=== PATIENT | female | born 1950 | race Caucasian/White ===

== ENCOUNTER 2016-12-20 06:32 | Outpatient (CLI) | payer MEDICARE, OTHER ==
[~2016-12-20] VITALS: Ht 162.6 cm; Wt 73.5 kg
[~2016-12-20 06:32] MED LIST: CALCTAB44 PO; CLOB-49 SUBD; FISH1000 PO; FLUT1SPR2; MAGN125C PO; MULT1TAB18 PO; MUPI2OI EXT; PHILCAP4 PO; PRESCAP6 PO; RETA0.5S OP; VITA100054 PO; ZYRT10TA2 PO; [UNRECOGNIZED DRUG - CODE] PO
[2016-12-20] MEDS ORDERED: PROPOFOL 200 MG/20 ML VIAL As Ordered ONE (07:06)
[2016-12-20] MEDS ORDERED: LIDOCAINE 2% INJ 100 MG/5 ML SDV (FOR ANES.) As Ordered ONE (07:11)
[2016-12-20] MEDS ORDERED: NS 1,000 ML IV SCH (07:15)
--- NOTE | 2016-12-20 07:49 | ROOR ---
Patient Name: Tiki Royal Procedure Date: 12/20/2016 7:27 AM Date of : 1950 Age: 66 Room: [facility] Gender: Female Note Status: Finalized Procedure: Colonoscopy Indications: Screening for colorectal malignant neoplasm Providers: Alfa WALKER MD Referring MD: Adolph Escobar MD Requesting Provider: Medicines: Monitored Anesthesia Care Complications: No immediate complications. Procedure: Pre-Anesthesia Assessment: - The heart rate, respiratory rate, oxygen saturations, blood pressure, adequacy of pulmonary ventilation, and response to care were monitored throughout the procedure. The Colonoscope was introduced through the anus and advanced to the cecum, identified by appendiceal orifice and ileocecal valve. The colonoscopy was performed without difficulty. The patient tolerated the procedure well. The quality of the bowel preparation was good. Findings: The perianal and digital rectal examinations were normal. Two flat polyps were found in the ascending colon. The polyps were 6 to 8 mm in size. These polyps were removed with a piecemeal technique using a cold snare. Resection and retrieval were complete. Multiple small-mouthed diverticula were found in the sigmoid colon. The exam was otherwise without abnormality on direct and retroflexion views. Impression: - Two 6 to 8 mm polyps in the ascending colon, removed piecemeal using a cold snare. Resected and retrieved. - Moderate diverticulosis in the sigmoid colon. - The examination was otherwise normal on direct and retroflexion views. Recommendation: - Repeat colonoscopy in 3 years for surveillance. Alfa Walker MD Alfa WALKER MD 12/20/2016 7:48:39 AM This report has been signed electronically. Number of Addenda: 0 Note Initiated On: 12/20/2016 7:27 AM Estimated Blood Loss: Estimated blood loss: none.
[2016-12-20 08:10] VITALS: BP 141/78
== END 2016-12-20 08:19 | disposition home or self-care (01) ==
LOC: M OPP 06:32
PROVIDERS: ATTEND Internal Medicine Gastroenterology
DX: Z12.11 Encounter for screening for malignant neoplasm of colon (principal); D12.2 Benign neoplasm of ascending colon; K57.30 Diverticulosis of large intestine without perforation or abscess without bleeding; M54.5 Low back pain; Z85.828 Personal history of other malignant neoplasm of skin; R51 Headache; E55.9 Vitamin D deficiency, unspecified; Z78.0 Asymptomatic menopausal state; Z88.8 Allergy status to other drugs, medicaments and biological substances; Z79.899 Other long term (current) drug therapy; Z80.3 Family history of malignant neoplasm of breast; Z80.8 Family history of malignant neoplasm of other organs or systems; Z80.41 Family history of malignant neoplasm of ovary

== ENCOUNTER 2016-12-28 10:44 | Day surgery (SDC) | payer MEDICARE, OTHER ==
[~2016-12-28] VITALS: Ht 162.6 cm; Wt 73.5 kg
[~2016-12-28 10:44] MED LIST changes: +ACETAMINOPHEN 325 MG TAB PO PRN; +BSS with VANC/TOB/EPI for EYE CASES IR ONE; +CYCLOPENTOLATE 2% OPHTH SOLN 2ML BTL OS ONE; +HEALON DUET (HEALON 10MG/ML 0.55ML & HEALON ENDOCOAT 30MG/ML 0.85ML) As Ordered ONE; +LIDOCAINE 1% SDV 5 ML VIAL As Ordered ONE; +LIDOCAINE 3.5 % 1ML OPHTH TOPICAL GEL OU ONE; +MOXIFLOXACIN IN BSS 0.25MG/0.25ML INTRACAMERAL INJ (OR EYE ONLY)(J2280) As Ordered ONE; +OFLOXACIN 0.3 % (OCUFLOX) OPTH SOL 5ML OS ONE; +PHENYLEPHRINE 2.5% OPHTH SOL 2ML OS ONE; +POVIDONE-IODINE 5% OPHTH PREP SOL 30ML As Ordered ONE; +PROPARACAINE 0.5% OPHTH SOL 15ML OS PRN; +TRIAMCINOLONE PRES FR 40 MG/ML 1ML(TRIESENCE)(OR EYE ONLY)(J3300 PER 1MG) As Ordered ONE; +TROPICAMIDE 1% OPHTH SOLN 2ML OS ONE
[2016-12-28] MEDS ORDERED: LIDOCAINE 1% SDV 5 ML VIAL SQ PRN (11:00)
[2016-12-28] MEDS ORDERED: LR 1,000 ML IV ONE (11:00)
[2016-12-28] MEDS ORDERED: MIDAZOLAM INJ 2 MG/2 ML VIAL (J2250) As Ordered ONE (13:31)
[2016-12-28] MEDS ORDERED: fentaNYL 100 MCG/2 ML INJECTION (J3010) As Ordered ONE (13:31)
[2016-12-28 14:30] VITALS: BP 147/70
[2016-12-28] MEDS ORDERED: KETOROLAC 0.5% OPHTH SOLN OS ONE (14:30)
[2016-12-28] MEDS ORDERED: TRIMETHOBENZAMIDE 300 MG CAP PO PRN (14:30)
[2016-12-28] MEDS ORDERED: AcetaZOLAMIDE 500 MG ER CAP PO ONE (14:30)
--- NOTE | 2016-12-30 11:38 | RO ---
DATE OF PROCEDURE: 12/28/2016 PREPROCEDURE DIAGNOSIS: Cataract of left eye. POSTPROCEDURE DIAGNOSIS: Cataract of left eye. PROCEDURE: Femtosecond laser and phacoemulsification of the intraocular lens with lens implantation left eye. Intraocular lens power used was [id number], power 12.5 diopter. SURGEON: Terese King MD CROWNING HAMMER OPERATOR: None. ANESTHESIA: Local IV standby. FINDINGS: Cataract of left eye. COMPLICATIONS: None. DESCRIPTION OF PROCEDURE: The patient was brought to the operating room and laid in supine position. A lid speculum was placed, and patient was brought under the femtosecond laser. After the satisfactory placement of the patient interface, primary incision, secondary incision, and arcuate incisions with lens fragmentation was done without any complication per plan. The patients interface was then removed and lid speculum removed. Patient was placed under the microscope. The eye was prepped and draped in a sterile fashion for ophthalmic surgery. Lid speculum was placed. The secondary incision was opened, and EndoCoat was injected into the anterior chamber. The temporal clear corneal incision was then opened and capsulorrhexis removed, followed by hydrodissection. This was followed by phacoemulsification of the lens within the capsular bag. Cortical material was then aspirated, and Healon was injected into the capsular bag. Intraocular lens was then placed. Excess Healon was aspirated. Wound was hydrated. The lid speculum was removed, and patient was returned to the recovery room in stable condition.
== END 2016-12-28 14:06 | disposition home or self-care (01) ==
LOC: M SDC 10:44
PROVIDERS: ATTEND Ophthalmology
DX: H25.9 Unspecified age-related cataract (principal); M54.5 Low back pain; Z85.828 Personal history of other malignant neoplasm of skin; Z88.8 Allergy status to other drugs, medicaments and biological substances; Z79.899 Other long term (current) drug therapy
CPT/HCPCS: 66984; J2250; J2280; J3010; J3300; V2788

== ENCOUNTER → 2016-12-30 | Outpatient (REF) | payer MEDICARE, OTHER ==
[~2016-12-30] MED LIST changes: -ACETAMINOPHEN 325 MG TAB PO PRN; -BSS with VANC/TOB/EPI for EYE CASES IR ONE; -CYCLOPENTOLATE 2% OPHTH SOLN 2ML BTL OS ONE; -HEALON DUET (HEALON 10MG/ML 0.55ML & HEALON ENDOCOAT 30MG/ML 0.85ML) As Ordered ONE; -LIDOCAINE 1% SDV 5 ML VIAL As Ordered ONE; -LIDOCAINE 3.5 % 1ML OPHTH TOPICAL GEL OU ONE; -MOXIFLOXACIN IN BSS 0.25MG/0.25ML INTRACAMERAL INJ (OR EYE ONLY)(J2280) As Ordered ONE; -OFLOXACIN 0.3 % (OCUFLOX) OPTH SOL 5ML OS ONE; -PHENYLEPHRINE 2.5% OPHTH SOL 2ML OS ONE; -POVIDONE-IODINE 5% OPHTH PREP SOL 30ML As Ordered ONE; -PROPARACAINE 0.5% OPHTH SOL 15ML OS PRN; -TRIAMCINOLONE PRES FR 40 MG/ML 1ML(TRIESENCE)(OR EYE ONLY)(J3300 PER 1MG) As Ordered ONE; -TROPICAMIDE 1% OPHTH SOLN 2ML OS ONE
[2016-12-30 12:09] LABS: ALBUMIN 4.2 GM/DL (3.2-5.2); ALBUMIN/GLOBULIN RATIO 1.2 (1.00-1.93); BILIRUBIN,TOTAL 0.9 MG/DL (0.2-1.0); CALCIUM LEVEL 8.9 MG/DL (8.8-10.2); CREATININE FOR GFR 1.06 MG/DL (0.55-1.02); GLOMERULAR FILTRATION RATE 55.4 (>45); POTASSIUM SERUM 4.7 MEQ/L (3.5-5.1); TOTAL PROTEIN 7.7 GM/DL (6.4-8.2)
== END ==
LOC: M SFHCPLAZ 07:49
PROVIDERS: ATTEND Internal Medicine
DX: E78.00 Pure hypercholesterolemia, unspecified (principal)

== ENCOUNTER 2017-01-04 09:52 | Day surgery (SDC) | payer MEDICARE, OTHER ==
[~2017-01-04] VITALS: Ht 162.6 cm; Wt 73.5 kg
[~2017-01-04 09:52] MED LIST changes: +ACETAMINOPHEN 325 MG TAB PO PRN; +BSS with VANC/TOB/EPI for EYE CASES IR ONE; +CYCLOPENTOLATE 2% OPHTH SOLN 2ML BTL OD ONE; +HEALON DUET (HEALON 10MG/ML 0.55ML & HEALON ENDOCOAT 30MG/ML 0.85ML) As Ordered ONE; +LIDOCAINE 1% SDV 5 ML VIAL As Ordered ONE; +LIDOCAINE 3.5 % 1ML OPHTH TOPICAL GEL OU ONE; +OFLOXACIN 0.3 % (OCUFLOX) OPTH SOL 5ML OD ONE; +PHENYLEPHRINE 2.5% OPHTH SOL 2ML OD ONE; +POVIDONE-IODINE 5% OPHTH PREP SOL 30ML As Ordered ONE; +PROPARACAINE 0.5% OPHTH SOL 15ML OD PRN; +TRIAMCINOLONE PRES FR 40 MG/ML 1ML(TRIESENCE)(OR EYE ONLY)(J3300 PER 1MG) As Ordered ONE; +TROPICAMIDE 1% OPHTH SOLN 2ML OD ONE
[2017-01-04] MEDS ORDERED: LIDOCAINE 1% MDV 20ML VIAL SQ ONE (10:00)
[2017-01-04] MEDS ORDERED: LR 500 ML IV ONE (10:00)
[2017-01-04] MEDS ORDERED: fentaNYL 100 MCG/2 ML INJECTION (J3010) As Ordered ONE (11:02)
[2017-01-04] MEDS ORDERED: MIDAZOLAM INJ 2 MG/2 ML VIAL (J2250) As Ordered ONE (11:02)
[2017-01-04] MEDS ORDERED: CEFUROXIME 1MG/0.1ML INTRACAMERAL INJ As Ordered ONE (11:07)
[2017-01-04] MEDS ORDERED: KETOROLAC 60 MG/2 ML VIAL (J1885) As Ordered ONE (11:18)
[2017-01-04 11:55] VITALS: BP 161/78
[2017-01-04] MEDS ORDERED: TRIMETHOBENZAMIDE 300 MG CAP PO PRN (12:00)
[2017-01-04] MEDS ORDERED: AcetaZOLAMIDE 500 MG ER CAP PO ONE (12:00)
[2017-01-04] MEDS ORDERED: KETOROLAC 0.5% OPHTH SOLN OD ONE (12:00)
--- NOTE | 2017-01-05 15:30 | RO ---
DATE OF PROCEDURE: 01/04/2017 PREPROCEDURE DIAGNOSIS: Cataract of right eye. POSTPROCEDURE DIAGNOSIS: Cataract of right eye. PROCEDURE: Femtosecond laser and phacoemulsification of the intraocular lens with lens implantation right eye. Intraocular lens power used was [id number], power 12 diopters. SURGEON: Terese King MD PRODUCE MANAGER: None. ANESTHESIA: Local IV standby. FINDINGS: Cataract of right eye. COMPLICATIONS: None. DESCRIPTION OF PROCEDURE: The patient was brought to the operating room and laid in supine position. A lid speculum was placed, and patient was brought under the femtosecond laser. After the satisfactory placement of the patient interface, primary incision, secondary incision, and arcuate incisions with lens fragmentation was done without any complication per plan. The patients interface was then removed and lid speculum removed. Patient was placed under the microscope. The eye was prepped and draped in a sterile fashion for ophthalmic surgery. Lid speculum was placed. The secondary incision was opened, and EndoCoat was injected into the anterior chamber. The temporal clear corneal incision was then opened and capsulorrhexis removed, followed by hydrodissection. This was followed by phacoemulsification of the lens within the capsular bag. Cortical material was then aspirated, and Healon was injected into the capsular bag. Intraocular lens was then placed. Excess Healon was aspirated. Wound was hydrated. The lid speculum was removed, and patient was returned to the recovery room in stable condition.
== END 2017-01-04 12:15 | disposition home or self-care (01) ==
LOC: M SDC 09:52
PROVIDERS: ATTEND Ophthalmology
DX: H25.9 Unspecified age-related cataract (principal); M54.5 Low back pain; Z85.828 Personal history of other malignant neoplasm of skin; Z88.8 Allergy status to other drugs, medicaments and biological substances
CPT/HCPCS: 66984; J1885; J2250; J3010; J3300; V2788

== ENCOUNTER → 2017-01-25 | Outpatient (REF) | payer MEDICARE, OTHER ==
[~2017-01-25] MED LIST changes: -ACETAMINOPHEN 325 MG TAB PO PRN; -BSS with VANC/TOB/EPI for EYE CASES IR ONE; -CYCLOPENTOLATE 2% OPHTH SOLN 2ML BTL OD ONE; -HEALON DUET (HEALON 10MG/ML 0.55ML & HEALON ENDOCOAT 30MG/ML 0.85ML) As Ordered ONE; -LIDOCAINE 1% SDV 5 ML VIAL As Ordered ONE; -LIDOCAINE 3.5 % 1ML OPHTH TOPICAL GEL OU ONE; -OFLOXACIN 0.3 % (OCUFLOX) OPTH SOL 5ML OD ONE; -PHENYLEPHRINE 2.5% OPHTH SOL 2ML OD ONE; -POVIDONE-IODINE 5% OPHTH PREP SOL 30ML As Ordered ONE; -PROPARACAINE 0.5% OPHTH SOL 15ML OD PRN; -TRIAMCINOLONE PRES FR 40 MG/ML 1ML(TRIESENCE)(OR EYE ONLY)(J3300 PER 1MG) As Ordered ONE; -TROPICAMIDE 1% OPHTH SOLN 2ML OD ONE
== END ==
LOC: M SFHCPLAZ 10:17
PROVIDERS: ATTEND Nurse Practitioner Adult Health
DX: Z12.4 Encounter for screening for malignant neoplasm of cervix (principal); N95.2 Postmenopausal atrophic vaginitis
CPT/HCPCS: G0123; G0463

== ENCOUNTER → 2017-05-16 | Outpatient (REF) | payer MEDICARE, OTHER ==
[2017-05-16 18:53] LABS: FREE T3 2.9 PG/ML (2.2-4.0); FREE T4 0.98 NG/DL (0.76-1.46)
== END ==
LOC: M SFHCPLAZ 15:25
DX: I10 Essential (primary) hypertension (principal)
CPT/HCPCS: 84443

== ENCOUNTER → 2018-12-31 | Outpatient (REF) | payer MEDICARE, OTHER ==
[~2018-12-31] MED LIST changes: +CALC1TAB82 PO; -CALCTAB44 PO; +ZYRT10CA5 PO; -ZYRT10TA2 PO
== END ==
LOC: M LABDRAWP 12:12
PROVIDERS: ATTEND Nurse Practitioner Adult Health
DX: Z12.4 Encounter for screening for malignant neoplasm of cervix (principal); N95.8 Other specified menopausal and perimenopausal disorders
CPT/HCPCS: G0123; G0463

== ENCOUNTER → 2019-01-17 | Outpatient (REF) | payer MEDICARE, OTHER ==
[2019-01-17 13:15] LABS: HEMATOCRIT 44.8 % (36.0-47.0); HEMOGLOBIN 14.9 g/dl (12.0-15.5); MEAN CORPUSCULAR HGB CONC 33.3 g/dl (32.0-36.5); MEAN CORPUSCULAR VOLUME 96.3 fl (80.0-96.0); PLATELET COUNT, AUTOMATED 284 10^3/uL (150-450); RED BLOOD COUNT 4.65 10^6/uL (4.00-5.40); WHITE BLOOD COUNT 5.4 10^3/uL (4.0-10.0)
[2019-01-17 13:34] LABS: ALT/SGPT 32 U/L (12-78); BILIRUBIN,TOTAL 0.8 MG/DL (0.2-1.0); BLOOD UREA NITROGEN 20 MG/DL (7-18); CALCIUM LEVEL 9.5 MG/DL (8.8-10.2); CARBON DIOXIDE LEVEL 28 MEQ/L (21-32); CHLORIDE LEVEL 105 MEQ/L (98-107); CHOLESTEROL LEVEL 205 MG/DL (<200); CHOLESTEROL RISK RATIO 2.887 (<5); CREATININE FOR GFR 0.95 MG/DL (0.55-1.30); GLOMERULAR FILTRATION RATE > 60.0 (>45); GLUCOSE, FASTING 90 MG/DL (70-100); HDL CHOLESTEROL 71 MG/DL (>40); LDL CHOLESTEROL 102 MG/DL (<100); MAGNESIUM LEVEL 2.4 MG/DL (1.8-2.4); NON-HDL-C 134 MG/DL; POTASSIUM SERUM 4.5 MEQ/L (3.5-5.1); SODIUM LEVEL 140 MEQ/L (136-145); TOTAL 25(OH) VITAMIN D 57.2 NG/ML (30.0-100.0); TOTAL PROTEIN 7.2 GM/DL (6.4-8.2); TRIGLYCERIDES LEVEL 158 MG/DL (<150)
== END ==
LOC: M SFHCPLAZ 08:53
PROVIDERS: ATTEND Internal Medicine
DX: Z86.010 Personal history of colon polyps (principal); I10 Essential (primary) hypertension; E78.2 Mixed hyperlipidemia; E55.9 Vitamin D deficiency, unspecified

== ENCOUNTER → 2019-08-12 | Outpatient (REF) | payer MEDICARE, OTHER ==
[2019-08-12 17:38] LABS: ALBUMIN 4.3 GM/DL (3.2-5.2); ALT/SGPT 34 U/L (12-78); BILIRUBIN,TOTAL 0.6 MG/DL (0.2-1.0); BLOOD UREA NITROGEN 19 MG/DL (7-18); C REACTIVE PROTEIN QUANTITATIV 0.34 MG/DL (0.00-0.30); CALCIUM LEVEL 9.4 MG/DL (8.8-10.2); CARBON DIOXIDE LEVEL 28 MEQ/L (21-32); CHLORIDE LEVEL 99 MEQ/L (98-107); CREATININE FOR GFR 0.97 MG/DL (0.55-1.30); GLOMERULAR FILTRATION RATE > 60.0 (>45); GLUCOSE, FASTING 95 MG/DL (70-100); POTASSIUM SERUM 4.1 MEQ/L (3.5-5.1); SODIUM LEVEL 134 MEQ/L (136-145); TOTAL PROTEIN 7.7 GM/DL (6.4-8.2); URIC ACID 7.1 MG/DL (2.6-6.0)
== END ==
LOC: M SFHCPLAZ 14:14
PROVIDERS: ATTEND Internal Medicine
DX: M25.562 Pain in left knee (principal); I10 Essential (primary) hypertension
CPT/HCPCS: 36415; 80053; 84550; 85652; 86140; G0463

== ENCOUNTER → 2020-01-03 | Outpatient (REF) | payer MEDICARE, OTHER ==
[~2020-01-03] MED LIST changes: +CALC-234 PO; -CALC1TAB82 PO
== END ==
LOC: M LAB REF 15:35
PROVIDERS: ATTEND Nurse Practitioner Adult Health
DX: Z01.419 Encounter for gynecological examination (general) (routine) without abnormal findings (principal)
CPT/HCPCS: G0123; G0463

== ENCOUNTER → 2020-02-26 | Outpatient (REF) | payer MEDICARE, OTHER ==
[2020-02-26 10:40] LABS: HEMOGLOBIN 14.6 g/dl (12.0-15.5); MEAN CORPUSCULAR HEMOGLOBIN 31.5 pg (27.0-33.0); MEAN CORPUSCULAR HGB CONC 32.4 g/dl (32.0-36.5); PLATELET COUNT, AUTOMATED 286 10^3/uL (150-450); RED BLOOD COUNT 4.64 10^6/uL (4.00-5.40); WHITE BLOOD COUNT 5.7 10^3/uL (4.0-10.0)
[2020-02-26 11:06] LABS: ALT/SGPT 30 U/L (12-78); BILIRUBIN,TOTAL 0.8 MG/DL (0.2-1.0); BLOOD UREA NITROGEN 17 MG/DL (7-18); CALCIUM LEVEL 9.5 MG/DL (8.8-10.2); CARBON DIOXIDE LEVEL 28 MEQ/L (21-32); CHLORIDE LEVEL 106 MEQ/L (98-107); CHOLESTEROL LEVEL 188 MG/DL (<200); CHOLESTEROL RISK RATIO 2.611 (<5); CREATININE FOR GFR 0.94 MG/DL (0.55-1.30); GLOMERULAR FILTRATION RATE > 60.0 (>45); GLUCOSE, FASTING 98 MG/DL (70-100); HDL CHOLESTEROL 72 MG/DL (>40); LDL CHOLESTEROL 92 MG/DL (<100); MAGNESIUM LEVEL 2.3 MG/DL (1.8-2.4); NON-HDL-C 116 MG/DL; POTASSIUM SERUM 4.6 MEQ/L (3.5-5.1); SODIUM LEVEL 139 MEQ/L (136-145); TOTAL PROTEIN 7.1 GM/DL (6.4-8.2); TRIGLYCERIDES LEVEL 118 MG/DL (<150); URIC ACID 5.5 MG/DL (2.6-6.0)
[2020-02-26 11:10] LABS: TOTAL 25(OH) VITAMIN D 65.7 NG/ML (30.0-100.0)
== END ==
LOC: M PLALAB 07:59
PROVIDERS: ATTEND Internal Medicine
DX: E78.2 Mixed hyperlipidemia (principal); M85.80 Other specified disorders of bone density and structure, unspecified site; I10 Essential (primary) hypertension; Z86.010 Personal history of colon polyps

== ENCOUNTER → 2020-03-25 | Outpatient (CLI) | payer MEDICARE, OTHER ==
[2020-03-25 13:25] LABS: PLATELET COUNT, AUTOMATED 285 10^3/uL (150-450)
[2020-03-25 13:34] LABS: INR 0.93; PARTIAL THROMBOPLASTIN TIME 29.7 SECONDS (24.2-38.5); PROTHROMBIN TIME 12.7 SECONDS (12.5-14.3)
== END ==
LOC: M PLALAB 10:47
PROVIDERS: ATTEND Physician Assistant
DX: M47.27 Other spondylosis with radiculopathy, lumbosacral region (principal)

== ENCOUNTER → 2020-05-06 | Outpatient (CLI) | payer MEDICARE, OTHER | LOC: M LABSMTC 09:33 | PROVIDERS: ATTEND Physical Medicine & Rehabilitation | DX: Z01.812 Encounter for preprocedural laboratory examination (principal); Z20.828 Contact with and (suspected) exposure to other viral communicable diseases ==

== ENCOUNTER → 2020-05-24 | Outpatient (CLI) | payer MEDICARE, OTHER ==
[~2020-05-24] MED LIST changes: +ATOR1TAB19; +CHLO125TA; +FLUO1CRE2; +MULT-90 PO
== END ==
LOC: M LABSMTC 08:15
PROVIDERS: ATTEND Anesthesiology
DX: Z01.812 Encounter for preprocedural laboratory examination (principal); Z20.822 Contact with and (suspected) exposure to COVID-19

== ENCOUNTER 2020-05-29 10:07 | Day surgery (SDC) | payer MEDICARE, OTHER ==
[~2020-05-29] VITALS: Ht 162.6 cm; Wt 77.1 kg
[~2020-05-29 10:07] MED LIST changes: +NS 1,000 ML IV ONE
--- OUTSIDE RECORDS SUMMARY | 2020-05-29 10:23 | CCD ---
Author Author [facility] Organization [facility] Address Unknown Phone Unavailable Care Team Providers Care Turn Laster Name Role Phone Adolph Escobar Unavailable PROBLEMS Type Condition ICD9-CM Code [id number] Code Onset Dates Condition S tatus SNOMED Code Notes Problem Vitamin D deficiency, unspecified E55.9 Active 28205483 Discovered 08/21. Last Vitamin D level was therapeutic in 02/2020. Problem Osteopenia M85.80 Active 757349065 She had ost eopenia on bone density study in 2004, 2008 and 2010, 2013 and 2015. She is on calcium and vitamin D replacement. Repeat DEXA in 01/2019 demonstrated T-scores in the -2.3 range in the spine and right femur. There was deterioration versus 2016. I started her on alendronate therapy, but she developed bilateral knee discomfort, had intra-articular steroid therapy then, and decided not to continue the medication. Problem History of adenomatous polyp of colon Z86.010 Ac tive [id number] Had a sessile serrated polyp on colonoscopy in 12/2016. Problem Family history of ovarian cancer Z80.41 Active 037012879 Problem Tinnitus of both ears H93.13 Active [id number] 102 She has severe tinnitus bilaterally. I added chlorthalidone therapy to her for BPPV, tinnitus. It is possible she has developed Meniere's disease. I stopped chlorthalidone due to left knee pain in late July 2019. Restarted 2-3 times a week in 02/2020. Problem Family history of diabetes mellitus (DM) Z83.3 Active 098715130 Problem Other chronic pain G89.29 Active 46761888 Problem Family history of breast cancer Z80.3 Active 624266117 Problem Mixed hyperlipidemia E78.2 Active 706204358 P atient has been advised to exercise regularly and follow a low-fat diet. Has an extremely favorable HDL, but her elevated LDL placed her at risk. Lipitor therapy was started in January 2017 at 5 mg three times a week and as of 01/2019 I increased the dose to 10 mg three times a week; lipids are controlled as of 02/2020. Problem Essential hypertension I10 Active 89328196 She has had a history of intermittent blood pressure elevations in the past but in May 2017 she became hypertensive. Thyroid function testing was normal May 2017. I started her on amlodipine but while she was in [place] in June 2017 she developed a rash and was changed to chlorthalidone which she had no benefit from. She subsequently had controlled blood pressure off medication. We confir med the accuracy of her home blood pressure cuff on 09/05/2017. She restarted chlorthalidone therapy for tinnitus, vertigo and a significant blood pressure elevation in June 2019 but I stopped that because of left knee pain as of late July 2019. Her blood pressures at home have been quite well controlled and she will continue to monitor. She gets labile blood pressure elevations in the office. BP elevation warrants restarting chlorthalidone to tolerance, 2-3 times a week. Problem Lumbago with sciatica, right side M54.41 Active 539353029 She has low back pain intermittently and takes meloxicam as needed. She does have history of gastritis from nonsteroidal anti-inflammatory drugs but tolerates meloxicam. She monitors her blood pressure on that therapy. Problem Hot flashes due to menopause N95.1 Active 198 356577 ALLERGIES Allergen (clinical drug ingredient) Drug/Non Drug Allergy do cumented on EMR Reaction Allergy Type Onset Date Status metoclopramide Reglan(NDC Code:[address]-15) burning feeling Drug Al lergy Active alendronate Alendronate Sodium(NDC Code:[address]-0 1) Swelling in the knees February 2019 Drug Allergy Active imiquimod Imiquimod(NDC Code:[address]-75) blister, heada ches, muscle aches Drug Allergy Active Prednisone MÉNDEZ, rash Drug Allergy Active ENCOUNTERS from 1950 to 2020-05-05 Encounter Location Date Provider Diagnosis [address] [address] Apr, [facility] IMMUNIZATIONS Vaccine Route Administration Date Status Influenza (18 yrs & older) Flublok IM Intramuscular Mar 06, 2019 Administered Depo-Medrol 40mg (Methylpredisolone Acetate) IM Intramuscular Au g 2018 Administered Influenza (18 yrs & older) Flublok IM Intramuscular Mar 12, 2018 Administered Zoster 50mcg/0.5mL (Shingrix) Unknown December 11, 2017 Ad ministered Zoster 50mcg/0.5mL (Shingrix) Unknown September 06, 2017 Ad ministered Depo-Medrol 40mg (Methylpredisolone Acetate) IM Intramuscular Fe b 2018 Administered Influenza (18 yrs & older) Flublok IM Intramuscular Mar 04, 2020 Administered Influenza (High Dose 65 & up) IM Intramuscular Mar 15, 2017 A dministered Pneumococcal Adult 0.5mL (Pneumovax 23) IM Intramuscular Jan Administered Pneumococcal 0.5mL (Prevnar 13) IM Intramuscular Jan 25, 2016 Administered SOCIAL HISTORY Sex Assigned At : Social History Observation Description Sex Assigned At Unknown Education: Question Answer Notes Level of Education: high school Audit Question Answer Notes Total Score: 1 Interpretation: Alcohol Education Sexual Hx: Question Answer Notes Had sex in the last 12 months (vaginal, oral, or anal)? Yes Have you ever had an STD? No with Men only Drug and Alcohol Question Answer Notes Total Score: 0 Interpretation: No problems reported Alcohol Screening: Question Answer Notes Did you have a drink containing alcohol in the past year? Ye s Points 1 Interpretation Negative How often did you have six or more drinks on one occas ion in the past year? Never (0 points) How many drinks did you have on a typica l day when you were drinking in the past year? 1 or 2 (0 points) How often did you have a drink containing alcohol in t he past year? Monthly or less (1 point) REASON FOR REFERRAL No Information VITAL SIGNS No information MEDICATIONS Medication SIG (Take, Route, Frequency, Duration) Notes Start Da te End Date Status Fiber - 2 tabs Orally twice a day Active Calcium 500 + D 500-125 MG-UNIT 1 tablet with food Orally Once a day Active Fish Oil 1000 MG 1 capsule Orally Once a day Active Probiotic - Orally Active Alavert 10 MG 1 tablet on the tongue and a llow to dissolve Orally Once a day as needed Active Prebiotic Product - 1 tab Orally Daily Active Drisdol 37755 UNIT 1 capsule Orally every other week for 90 days Active Magnesium Citrate 100 MG Orally Active Flonase 50 MCG/ACT 2 sprays in each nostril Nasally daily a s needed for 90 days Active Albuterol Sulfate HFA 108 (90 Base) MCG/ACT 2 puffs In halation every 4 hrs as needed for wheezing for 30 Days Jul, Active Chlorthalidone 25 MG 1 tablet Orally Two to three times a week f or 90 day(s) Feb, Active PreserVision AREDS 2 - 1 cap Orally once daily Active Multiple Vitamin - 1 tablet Orally Once a day Active Atorvastatin Calcium 10 MG 1 tablet Orally Once a day, Monday, Monday and Monday for 90 days Jan, Active PROCEDURES No Information RESULTS No Results REASON FOR VISIT Prednisone MEDICAL (GENERAL) HISTORY Type Description Date Medical History family history of ovarian cancer Mother and maternal Aunt Medical History family history of breast cancer sister Medical History family history of diabetes, mother, sist er, brother Medical History Vitamin D deficiency Medical History Mixed hyperlipidemia Medical History Essential hypertension Medical History Hot flashes, menopausal Medical History Vitamin D deficiency, unspecified Medical History History of adenomatous polyp of colon Medical History Osteopenia Medical History Family history of diabetes mellitus (DM) Medical History Family history of ovarian cancer Medical History Family history of breast cancer Medical History Gastroesophageal reflux disease without esophagitis Surgical History D&C 04/1994 Surgical History right oneyda and tailor bunionectomies 0 05/2005 Surgical History left oneyda and tailor bunionectomy 05/16 007 Surgical History right 4th finger dupuytran's contracture release 10/2013 Surgical History skin cancers removed from chest 10/2012, 11/2013 Surgical History Colonoscopy 06/2006 Surgical History Colonoscopy 12/2016 Surgical History Bilateral cataract extractions 12/2016 Hospitalization History for above reasons Goals Section No Information Health Concerns No Information MEDICAL EQUIPMENT No Information MENTAL STATUS No Information FUNCTIONAL STATUS No Information ASSESSMENTS No Information PLAN OF TREATMENT Medication Medication Name Sig Start Date Stop Date Chlorthalidone 25 MG 1 tablet Orally Two to three times a we ek for 90 day(s) Feb, Drisdol 18627 UNIT 1 capsule Orally every other week for 90 days Atorvastatin Calcium 10 MG 1 tablet Orally Once a day, Monday, Monday and Monday for 90 days Jan, Flonase 50 MCG/ACT 2 sprays in each nostril Nasally daily a s needed for 90 days Next Appt Details Provider Name:Adolph Escobar, 2020-09-07 11 :30:00 AM, [address] [place], [address], Insurance Providers Payer Name Payer Address Payer Phone Insured Name Patient Relati onship to Insured Coverage Start Date Coverage End Date MEDICARE Part A and B [address] [facility] [phone] ROYAL,LORRINE E self R [facility] [address] [id number] [facility] [phone] ROYAL,LORRINE E self FOR LIFE [address] [facility] [address] ROYAL,LORRINE E self
--- OUTSIDE RECORDS SUMMARY | 2020-05-29 10:23 | CCD | Continuity of Care Document ---
Author Author Tiki DELCID MD Organization Unknown Address [address] [place] [address], it e [address] [place] [address] Phone [phone] Care Team Providers Care Slab Inspector Name Role Phone Adolph Escobar MD [facility] [phone] Problems Description No Information Available Social History Type Date Description Comments Sex Unknown ETOH Use Rarely consumes alcohol Tobacco Use Start: Unknown Denies Smoking Allergies, Adverse Reactions, Alerts Active Allergies Reaction Severity Comments Date Reglin burning throat and stomach 0 11/29/2017 Imiquimod Blisters headaches muscle aches 11/29/2017 Prednisone rash on legs and arms 2017 Reglan 12/26/2017 Medications Active Medications SIG Qnty Indications Ordering Provide r Date Valium 5mg Tablets take one half hour prior to mri..may repeat in 30 minutes if no effect..do not drive to or from mri 2tabs Julito Maher MD 020 Euflexxa 20mg/2ML Soln Prefill Syr sharmila left knee #1 dpv/ef 09/11/2019, left knee # 2 09/17/2019 dpv/nlg left knee #3 09/26/2019 dpv/rs M17.12 Julito Maher MD 2019 Tizanidine HCL 2mg Capsules 1 by mouth up to 4 times a day as needed 30caps M75.42 Angel Winston MD Vitamin D3 Ultra Potency 38386Hyxu Tablets 1 by mouth weekly for 12 weeks Unknown Zyrtec Allergy 10mg Tablets 1 by mouth every day Unknown Fluticasone Propionate 50mcg/Act Suspension 2 sprays each nostril daily Unknown Alavert 10mg Tablets Dispers Unknown Fish Oil 1000mg Capsules 1 by mouth every day Unknown Vanegas Colon Health Capsules Unknown Preservision Areds 2 Areds 2 Capsu les 1 by mouth every day Unknown Calcium 500 + D [id number] Tab lets 1 by mouth twice a day Unknown Chelated Magnesium 100mg Tablets Unknown Multivitamin Adult Tablets 2 by mouth every day Unknown Vitamin D (Ergocalciferol) 1.25mg (17388 Ut) Capsules Adolph Escobar MD Atorvastatin Calcium 10mg Tablets Adolph Escobar MD Immunizations Description No Information Available Vital Signs Date Vital Result Comment 08/22/2019 9:11am Height 64 inches 5'4" Weight 175.00 lb BMI (Body Mass Index) 30.0 kg/m2 01/08/2018 3:24pm Height 64 inches 5'4" Weight 171.00 lb BMI (Body Mass Index) 29.3 kg/m2 Results Test Acquired Date Facility Test Result H/L Range Note Laboratory test finding 05/06/2020 [facility] [address] [place] [address] (315)- - Coronavirus 2019 Nasopharygeal This nucleic aci <SEE NOTE> 1 Prothrombin Time/Inr 03/25/2020 [facility] [address] [place] [address] (315)- - Prothrombin Time 12.7 seconds Normal 12.5-14.3 Inr 0.93 Normal 2 Laboratory test finding 03/25/2020 [facility] [address] [place] [address] (315)- - Partial Thromboplastin Time 29.7 seconds Normal 24.2-3 8.5 Platelet Count, Automated 285 10 Normal 150-450 1 This nucleic acid amplificat ion test was developed and its performance characteristics determined by [employer]. Nucleic acid amplification tests include PCR and TMA. This test has not been FDA cleared or approved. This test has been authorized by FDA under an Emergency Use Authorization (EUA). This test is only authorized for the duration of time the declaration that circumstances exist justifying the authorization of the emergency use of in vitro diagnostic tests for detection of SARS-CoV-2 virus and/or diagnosis of COVID-19 infection under section 564(b)(1) of the Act, 21 U.S.C. 360bbb-3 (b) (1), unless the authorization is terminated or revoked sooner. When diagnostic testing is negative, the possibility of a false negative result should be considered in the context of a patient's recent exposures and the presence of clinical signs and symptoms consistent with COVID-19. An individual without symptoms of COVID-19 and who is not shedding SARS-CoV-2 virus would expect to have a negative (not detected) result in this assay. Performed at: [facility] [address], [place], [place] [id number] Tub Rider: Khushbu Teran PhD, Phone: [phone] Not Detected 2 THERAPUTIC HUMAN INR VALUES INDICATIONS NORMAL RANGES PROPHYLAXIS/TREATMENT OF: VENOUS THROMBOSIS 2.0-3.0 PULMONARY EMBOLISM 2.0-3.0 PREVENTION OF SYSTEMIC EMBOLISM FROM: TISSUE HEART VALVES 2.0-3.0 ACUTE MYOCARDIAL INFARCTION 2.0-3.0 VALVULAR HEART DISEASE 2.0-3.0 ATRIAL FIBRILLATION 2.0-3.0 MECHANICAL VALVES(HIGH RISK) 2.5-3.5 RECURRENT MYOCARDIAL INFARCTION 2.5-3.5 Procedures Description No Information Available Medical Devices Description No Information Available Encounters Type Date Location Provider Dx Diagnosis Office Visit 03/25/2020 9:30a [facility] M47.27 Other spondylosis with radiculopathy, lumbosacral region M51.37 Other intervertebral disc de generation, lumbosacral region M51.27 Other intervertebral disc di splacement, lumbosacral region Assessments Date Code Description Provider 03/25/2020 M47.27 Other spondylosis with radiculop athy, lumbosacral region [facility] 03/25/2020 M51.37 Other intervertebral disc degene ration, lumbosacral region [facility] 03/25/2020 M51.27 Other intervertebral disc displa cement, lumbosacral region [facility] 03/10/2020 M48.07 Spinal stenosis, lumbosacral reg ion DRonak Maher MD 01/31/2020 M17.12 Unilateral primary osteoarthriti s, left knee D. Zurdo Maher MD Plan of Treatment Future Appointment(s):* 06/01/2020 10:30 am - [facility] at [facility] * 06/04/2020 9:45 am - Cristian Black at [facility] * 05/21/2020 9:15 am - Cristian Black at [facility] * 05/14/2020 9:45 am - Krista BlackARonak at [facility] 03/25/2020 - [facility]* M47.27 Other spondylosis with radiculopathy, lumbosacral region* Follow up:* after KACI injections * M51.37 Other intervertebral disc degeneration, lumbosacral region * M51.27 Other intervertebral disc displacement, lumbosacral region Functional Status Description No Information Available Mental Status Description No Information Available Referrals Refer to Dr Reason for Referral Status Appt Date Melecio Delcid MD Created [address] [place] [address] [phone] Melecio Delcid MD Left knee Euflexxa-No authorization req. C reated [address] [place], [place] [id number] [phone] Aditya [place]ult[place] KACI [id number] RT AND LT L4 TRANSFORAMINAL KACI NO AUTH REQUIRED. PASSED TO SURGERY. LS Created [address] [place] [address] [phone] Kaveh Maher MD REF NO AUTH REQUIRED FOR REF TO DR ALEJANDRO TO TRANS NT Created [address] [place] [address] [phone]
--- OUTSIDE RECORDS SUMMARY | 2020-05-29 10:23 | CCD | Continuity of Care Document ---
Author Author Tiki VILLAR PA Organization Unknown Address [address] [place] [address] Phone [phone] Care Team Providers Care Service Order Expediter Name Role Phone Adolph Escobar MD AUT [phone] Problems Description No Information Available Social History [...] Angel Winston MD Vitamin D3 Ultra Potency 62015Pjac Tablets 1 by mouth weekly for 12 [...] every day Unknown Calcium 500 + D [id number] Tab lets 1 by mouth twice a day Unknown Chelated Magnesium 100mg Tablets Unknown Multivitamin Adult Tablets 2 by mouth every day Unknown Vitamin D (Ergocalciferol) 1.25mg (69512 Ut) Capsules Adolph Escobar MD Atorvastatin Calcium 10mg Tablets Adolph Escobar MD Immunizations Description No Information Available Vital Signs Date Vital Result Comment 08/22/2019 9:11am Height 64 inches 5'4" Weight 175.00 lb BMI (Body Mass Index) 30.0 kg/m2 01/08/2018 3:24pm Height 64 inches 5'4" Weight 171.00 lb BMI (Body Mass Index) 29.3 kg/m2 Results Test Acquired Date Facility Test Result H/L Range Note Prothrombin Time/Inr 03/25/2020 [facility] entr [address] [place] [address] (315)- - Prothrombin Time 12.7 seconds Normal 12.5-14.3 Inr 0.93 Normal 1 Laboratory test finding 03/25/2020 [facility] [address] [place] [address] (315)- - Partial Thromboplastin Time 29.7 seconds Normal 24.2-3 8.5 Platelet Count, Automated 285 10 Normal 150-450 1 THERAPUTIC HUMAN INR VALUES INDICATIONS NORMAL RANGES PROPHYLAXIS/TREATMENT OF: VENOUS THROMBOSIS 2.0-3.0 PULMONARY EMBOLISM 2.0-3.0 PREVENTION OF SYSTEMIC EMBOLISM FROM: TISSUE HEART VALVES 2.0-3.0 ACUTE MYOCARDIAL INFARCTION 2.0-3.0 VALVULAR HEART DISEASE 2.0-3.0 ATRIAL FIBRILLATION 2.0-3.0 MECHANICAL VALVES(HIGH RISK) 2.5-3.5 RECURRENT MYOCARDIAL INFARCTION 2.5-3.5 Procedures Date Code Description Status 10/24/2019 04527 Inject/Drain Joint/Bursa Major C ompleted 10/21/2019 07355 Therapeutic Procedure, Each 15 M inutes Completed 10/21/2019 82270 Ultrasound, Each 15 Min, Constan t Attendance Completed 10/17/2019 86929 Therapeutic Procedure, Each 15 M inutes Completed 10/17/2019 28829 Ultrasound, Each 15 Min, Constan t Attendance Completed 10/15/2019 44773 Therapeutic Procedure, Each 15 M inutes Completed 10/10/2019 95610 Therapeutic Procedure, Each 15 M inutes Completed 10/10/2019 46850 Hot Or Cold Packs Completed Medical Devices Description No Information Available Encounters Type Date Location Provider Dx Diagnosis Office Visit 03/25/2020 9:30a [place] [facility] Ho M47.27 Other spondylosis with radiculopathy, [...] 03/10/2020 M48.07 Spinal stenosis, lumbosacral reg ion Julito Maher MD 01/31/2020 M17.12 Unilateral primary osteoarthriti s, left knee Julito Maher MD 10/24/2019 M17.12 Unilateral primary osteoarthriti s, left knee Julito Maher MD 10/21/2019 M17.12 Unilateral primary osteoarthriti s, left knee Ludwin Banda P.T. 10/17/2019 M17.12 Unilateral primary osteoarthriti s, left knee Luciana Cordova, COMPRESSOR OPERATOR 10/15/2019 M17.12 Unilateral primary osteoarthriti s, left knee Geena Nuno P.T.A. 10/10/2019 M17.12 Unilateral primary osteoarthriti s, left knee Geena Scee P.T.A. Plan of Treatment Future Appointment(s):* 05/11/2020 8:00 am - Melecio Hidalgo MD at [facility] * 05/14/2020 9:45 am - Cristian Black at [place] * 05/06/2020 9:45 am - Cristian Black at [place] 03/25/2020 - [facility]* M47.27 Other spondylosis with radiculopathy, lumbosacral region* Follow up:* after KACI injections * M51.37 Other intervertebral disc degeneration, lumbosacral region * M51.27 Other intervertebral disc displacement, lumbosacral region Functional Status Description No Information Available Mental Status Description No Information Available Referrals Refer to Dr Reason for Referral Status Appt Date Aditya Fulton PA KACI [id number] RT AND LT L4 TRANSFORAMINAL KACI NO AUTH REQUIRED. PASSED TO SURGERY. LS Created [address] [place] [address] [address] [place] [address] [phone] Kaveh Maher MD REF NO AUTH REQUIRED FOR REF TO DR ALEJANDRO TO TRANS NT Created [address] [place] [address], [address] [place] [address] [phone]
--- OUTSIDE RECORDS SUMMARY | 2020-05-29 10:23 | CCD | Continuity of Care Document ---
Author Author Tiki DELCID MD Organization Unknown Address [address] [place] [address], it e [address] [place] [address] Phone [phone] Care Team Providers Care Maintenance Of Way Supervisor Name Role Phone Adolph Escobar MD [facility] [phone] Problems Description No Information Available Social History [...] not drive to or from mri 2tabs uJlito Maher MD 020 Euflexxa 20mg/2ML Soln Prefill Syr sharmila left knee #1 dpv/ef 09/11/2019, left knee # 2 09/17/2019 dpv/nlg left knee #3 09/26/2019 dpv/rs M17.12 Julito Maher MD 2019 Tizanidine HCL 2mg Capsules 1 by mouth up to 4 times a day as needed 30caps M75.42 Angel Winston MD Vitamin D3 Ultra Potency 45011Klbr Tablets 1 by mouth weekly for 12 [...] every day Unknown Calcium 500 + D [id number]-Rvuz Tab lets 1 by mouth twice a day Unknown Chelated Magnesium 100mg Tablets Unknown Multivitamin Adult Tablets 2 by mouth every day Unknown Vitamin D (Ergocalciferol) 1.25mg (04319 Ut) Capsules Adolph Escobar MD Atorvastatin Calcium [...] H/L Range Note Laboratory test finding [facility] [address] [place] [address] (315)- - Coronavirus 2019 Nasopharygeal This nucleic aci <SEE NOTE> 1 Prothrombin Time/Inr 03/25/2020 [facility] entr [address] [place] [address] (315)- - Prothrombin Time 12.7 seconds Normal 12.5-14.3 Inr 0.93 Normal 2 Laboratory test finding 03/25/2020 [facility] [address] [place] [address] (315)- - Partial Thromboplastin Time 29.7 seconds Normal 24.2-3 8.5 Platelet Count, Automated 285 10 Normal 150-450 1 This nucleic acid amplificat ion test was developed and its performance characteristics determined by [facility]. Nucleic acid amplification tests include PCR and [...] detected) result in this assay. Performed at: [facility] [email or web address], [place], [place] [id number] Therapeutic Massage Technician: Khushbu Teran PhD, Phone: [phone] Not Detected 2 THERAPUTIC HUMAN INR VALUES INDICATIONS NORMAL RANGES PROPHYLAXIS/TREATMENT OF: VENOUS THROMBOSIS 2.0-3.0 PULMONARY EMBOLISM 2.0-3.0 PREVENTION OF SYSTEMIC EMBOLISM FROM: TISSUE HEART VALVES 2.0-3.0 ACUTE MYOCARDIAL INFARCTION 2.0-3.0 VALVULAR HEART DISEASE 2.0-3.0 ATRIAL FIBRILLATION 2.0-3.0 MECHANICAL VALVES(HIGH RISK) 2.5-3.5 RECURRENT MYOCARDIAL INFARCTION 2.5-3.5 Procedures Date Code Description Status 05/11/2020 89398 Moderate Sedation Se rvices; Same Phys Intl 15 Mins; PT >= 5 Years Completed 05/11/2020 23922 Epidurography Radiological Super vision & Interpretation Completed 05/11/2020 08331 Injec Anesthetic Age nt/Steroid Trans Epidural Lumb/Sacral Single Completed Medical Devices Description No Information Available Encounters Type Date Location Provider Dx Diagnosis Office Visit 03/25/2020 9:30a [place] M47.27 Other spondylosis with radiculopathy, lumbosacral region M51.37 Other intervertebral disc de generation, lumbosacral region M51.27 Other intervertebral disc di splacement, lumbosacral region Assessments Date Code Description Provider 05/11/2020 M47.816 Spondylosis without myelopathy or radiculopathy, lumbar region Melecio Delcid MD 05/11/2020 M51.36 Other intervertebral disc degene ration, lumbar region Melecio Delcid MD 03/25/2020 M47.27 Other spondylosis with radiculop athy, lumbosacral region [facility] 03/25/2020 M51.37 Other intervertebral disc degene ration, lumbosacral region [facility] 03/25/2020 M51.27 Other intervertebral disc displa cement, lumbosacral region [facility] 03/10/2020 M48.07 Spinal stenosis, lumbosacral reg ion DRonak Maher MD 01/31/2020 M17.12 Unilateral primary osteoarthriti s, left knee DRonak Maher MD Plan of Treatment Future Appointment(s):* 06/01/2020 10:30 am - [facility] at [place] * 06/04/2020 9:45 am - Aditya Fulton [facility] at [place] * 05/21/2020 9:15 am - Aditya Fulton [facility] at [place] * 05/14/2020 9:45 am - Aditya Fulton P.A. at [place] 03/25/2020 - [facility] [facility]* M47.27 Other spondylosis with radiculopathy, lumbosacral region* Follow up:* after KACI injections * M51.37 Other intervertebral disc degeneration, lumbosacral region * M51.27 Other intervertebral disc displacement, lumbosacral region Functional Status Description No Information Available Mental Status Description No Information Available Referrals Refer to Dr Reason for Referral Status Appt Date Melecio Delcid MD Created [address] [place] [address], [address] [place] [address] [phone] Melecio Delcid MD Left knee Euflexxa-No authorization req. C reated [address] [place] [address], [address] [address] [phone] Aditya Fulton PA KACI 11961 [id number] RT AND LT L4 TRANSFORAMINAL KACI NO AUTH REQUIRED. PASSED TO SURGERY. LS Created [address] [place], [place] [address] [place], [place] [id number] [phone] Kaveh Maher MD REF NO AUTH REQUIRED FOR REF TO DR ALEJANDRO TO TRANS NT Created [address] [facility], [address] [place] [address] [phone]
--- OUTSIDE RECORDS SUMMARY | 2020-05-29 10:23 | CCD ---
Continuity of Care Document (CCD) Created on: 05/21/2020 Tiki Royal External Reference #: [id number] : 1950 Sex: Female Author Author Tiki FULTON PRonakA. Organization Unknown Address [address] [place] [address], [facility] e [address] [place] [address] Phone [phone] Care Team Providers Care Cash Control Specialist Name Role Phone Adolph Escobar MD [facility] [phone] Problems Description No Information Available Social History [...] SIG Qnty Indications Ordering Provide r Date Euflexxa 20mg/2ML Soln Prefill Syr sharmila lt knee #1 mkm/hd 05/14/20, left knee #2 05/21/2020 mkm/yolanda Daron Haywood MD 05/14/2020 Euflexxa 20mg/2ML Soln Prefill Syr sharmila left knee #1 dpv/ef 09/11/2019, left knee # 2 09/17/2019 dpv/nlg left knee #3 09/26/2019 dpv/rs M17.12 Julito Maher MD 2019 Vitamin D3 Ultra Potency 50250Qzvg Tablets 1 by mouth weekly for 12 weeks Unknown Zyrtec Allergy 10mg Tablets 1 by mouth every day Unknown Fluticasone Propionate 50mcg/Act Suspension 2 sprays each nostril daily Unknown Alavert 10mg Tablets Dispers Unknown Fish Oil 1000mg Capsules 1 by mouth every day Unknown Preservision Areds 2 Areds 2 Capsu les 1 by mouth every day Unknown Calcium 500 + D [id number]-Mrnx Tab lets 1 by mouth twice a day Unknown Chelated Magnesium 100mg Tablets Unknown Multivitamin Adult Tablets 2 by mouth every day Unknown Vitamin D (Ergocalciferol) 1.25mg (78994 Ut) Capsules Adolph Escobar MD Atorvastatin Calcium 10mg Tablets Adolph Escobar MD Lipitor 10mg Tablets 1 tablet, 1 time per day, Unknown History Medications Valium 5mg Tablets take one half hour prior to mri..may repeat in 30 minutes if no effect..do not drive to or from mri 2tabs D. Zurdo Maher MD 020 - 05/14/2020 Immunizations Description No Information Available Vital Signs Date Vital Result Comment 08/22/2019 9:11am Height 64 inches 5'4" Weight 175.00 lb BMI (Body Mass Index) 30.0 kg/m2 01/08/2018 3:24pm Height 64 inches 5'4" Weight 171.00 lb BMI (Body Mass Index) 29.3 kg/m2 Results Test Acquired Date Facility Test Result H/L Range Note Laboratory test finding 05[facility]06[facility] [address] [place] [address] (315)- - Coronavirus 2019 Nasopharygeal This nucleic aci <SEE NOTE> 1 Prothrombin Time/Inr 03/25/2020 [facility] C entr [address] [place] [address] (315)- - Prothrombin Time 12.7 seconds Normal 12.5-14.3 Inr 0.93 Normal 2 Laboratory test finding 03/25/2020 [facility] [address] [place] [address] (315)- - Partial Thromboplastin Time 29.7 seconds Normal 24.2-3 8.5 Platelet Count, Automated 285 10 Normal 150-450 1 This nucleic acid amplificat ion test was developed and its performance characteristics determined by [employer]. Nucleic acid amplification tests include PCR and [...] detected) result in this assay. Performed at: [facility] [address], [place], [place] [id number] Director Design: Khushbu Teran PhD, Phone: [phone] Not Detected 2 THERAPUTIC HUMAN INR VALUES INDICATIONS NORMAL RANGES PROPHYLAXIS/TREATMENT OF: VENOUS THROMBOSIS 2.0-3.0 PULMONARY EMBOLISM 2.0-3.0 PREVENTION OF SYSTEMIC EMBOLISM FROM: TISSUE HEART VALVES 2.0-3.0 ACUTE MYOCARDIAL INFARCTION 2.0-3.0 VALVULAR HEART DISEASE 2.0-3.0 ATRIAL FIBRILLATION 2.0-3.0 MECHANICAL VALVES(HIGH RISK) 2.5-3.5 RECURRENT MYOCARDIAL INFARCTION 2.5-3.5 Procedures Date Code Description Status 05/14/2020 03675 Inject/Drain Joint/Bursa Major C ompleted 05/11/2020 44751 Moderate Sedation Se rvices; Same Phys Intl 15 Mins; PT >= 5 Years Completed 05/11/2020 14592 Epidurography Radiological Super vision & Interpretation Completed 05/11/2020 69642 Injec Anesthetic Age nt/Steroid Trans Epidural Lumb/Sacral Single Completed Medical Devices Description No Information Available Encounters Type Date Location Provider Dx Diagnosis Office Visit 05/14/2020 9:45a Magaly Fulton, P.A. M17.12 Unilateral primary osteoarthritis, left knee Office Visit 03/25/2020 9:30a [place] M47.27 Other spondylosis with radiculopathy, lumbosacral region M51.37 Other intervertebral disc de generation, lumbosacral region M51.27 Other intervertebral disc di splacement, lumbosacral region Assessments Date Code Description Provider 05/14/2020 M17.12 Unilateral primary osteoarthriti s, left knee Aditya Fulton, P.A. 05/11/2020 M47.816 Spondylosis without myelopathy or radiculopathy, lumbar region Melecio Hidalgo MD 05/11/2020 M51.36 Other intervertebral disc degene ration, lumbar region Melecio Hidalgo MD 03/25/2020 M47.27 Other spondylosis with radiculop athy, lumbosacral region [facility] 03/25/2020 M51.37 Other intervertebral disc degene ration, lumbosacral region [facility] 03/25/2020 M51.27 Other intervertebral disc displa cement, lumbosacral region [facility] 03/10/2020 M48.07 Spinal stenosis, lumbosacral reg ion Julito Maher MD 01/31/2020 M17.12 Unilateral primary osteoarthriti s, left knee Julito Maher MD Plan of Treatment Future Appointment(s):* 06/01/2020 10:30 am - [facility] at [place] * 06/04/2020 9:45 am - Aditya Fulton, P.A. at [place] Functional Status Description No Information Available Mental Status Description No Information Available Referrals Refer to Dr Reason for Referral Status Appt Date Melecio Hidalgo MD Created [address] [place] [address], [address] [address] [phone] Melecio Hidalgo MD Left knee Euflexxa-No authorization req. C reated [address] [place] [address], [address] [address] [phone] Aditya Fulton PA KACI 14921 [id number] RT AND LT L4 TRANSFORAMINAL KACI NO AUTH REQUIRED. PASSED TO SURGERY. LS Created [address] [place], [place] [address] [place], [place] [address] [phone] Kaveh Maher MD REF NO AUTH REQUIRED FOR REF TO DR ALEJANDRO TO TRANS NT Created [address] [facility], [address] [place] [address] [phone]
--- OUTSIDE RECORDS SUMMARY | 2020-05-29 10:23 | CCD ---
Author Author [facility] Organization [facility] Address Unknown Phone Unavailable Care Team Providers Care Boat Detailer Name Role Phone Adolph Escobar Unavailable PROBLEMS Type Condition ICD9-CM Code XGS45-RA Code Onset Dates Condition S tatus SNOMED Code Notes Problem Vitamin D deficiency, unspecified E55.9 Active 75864503 Discovered 08/21. Last Vitamin D level was therapeutic in 02/2020. Problem Osteopenia M85.80 Active 136415988 She had ost eopenia on bone density [...] adenomatous polyp of colon Z86.010 Ac tive 530706230 Had a sessile serrated polyp on colonoscopy in 12/2016. Problem Family history of ovarian cancer Z80.41 Active 120879668 Problem Tinnitus of both ears H93.13 Active 6738080859 102 She has severe tinnitus bilaterally. I added chlorthalidone therapy to her for BPPV, tinnitus. It is possible she has developed Meniere's disease. I stopped chlorthalidone due to left knee pain in late July 2019. Restarted 2-3 times a week in 02/2020. Problem Family history of diabetes mellitus (DM) Z83.3 Active 124463859 Problem Other chronic pain G89.29 Active 07780718 Problem Family history of breast cancer Z80.3 Active 138643863 Problem Mixed hyperlipidemia E78.2 Active 495618842 P atient has been advised to exercise [...] of 02/2020. Problem Essential hypertension I10 Active 76166730 She has had a history of intermittent blood pressure elevations in the past but in May 2017 she became hypertensive. Thyroid function testing was normal May 2017. I started her on amlodipine but while she was in [place] in June 2017 she developed a rash [...] Lumbago with sciatica, right side M54.41 Active 365220514 She has low back pain intermittently and takes meloxicam as needed. She does have history of gastritis from nonsteroidal anti-inflammatory drugs but tolerates meloxicam. She monitors her blood pressure on that therapy. Problem Hot flashes due to menopause N95.1 Active 198 094925 ALLERGIES Allergen (clinical drug ingredient) Drug/Non Drug Allergy do cumented on EMR Reaction Allergy Type Onset Date Status metoclopramide Reglan(NDC Code:[address]-28) burning feeling Drug Al lergy Active alendronate Alendronate Sodium(NDC Code:[address]-9 1) Swelling in the knees February 2019 Drug Allergy Active imiquimod Imiquimod(NDC Code:[address]-23) blister, heada ches, muscle aches Drug Allergy Active Prednisone MÉNDEZ, rash Drug Allergy Active ENCOUNTERS from 1950 to 2020-05-05 Encounter Location Date Provider Diagnosis [address] [address] Apr, [facility] IMMUNIZATIONS Vaccine Route Administration Date Status Influenza [...] - 1 tab Orally Daily Active Drisdol 51574 UNIT 1 capsule Orally every other week [...] Information RESULTS No Results REASON FOR VISIT Re:RE:Prednisone MEDICAL (GENERAL) HISTORY Type Description Date Medical [...] we ek for 90 day(s) Feb, Drisdol 95692 UNIT 1 capsule Orally every other week for 90 days Atorvastatin Calcium 10 MG 1 tablet Orally Once a day, Monday, Monday and Monday for 90 days Jan, Flonase 50 MCG/ACT 2 sprays in each nostril Nasally daily a s needed for 90 days Next Appt Details Provider Name:Adolph Escobar, 2020-09-07 11 :30:00 AM, [address] [place], [address], Insurance Providers Payer Name Payer Address Payer Phone Insured Name Patient Relati onship to Insured Coverage Start Date Coverage End Date [facility] [address] [address] [facility] [id number] ROYAL,LORRINE E self FOR LIFE [address] [facility] [phone] ROYAL,LORRINE E self MEDICARE Part A and B [address] [facility] [phone] ROYAL,LORRINE E self
--- OUTSIDE RECORDS SUMMARY | 2020-05-29 10:23 | CCD ---
Continuity of Care Document (CCD) Created on: 05/14/2020 Tiki Royal External Reference #: [id number] : 1950 Sex: Female Author Author Tiki FULTON P.A. Organization Unknown Address [address] [facility] [address] [place] [address] Phone [phone] Care Team Providers Care Can Marker Name Role Phone Adolph Escobar MD [facility] [phone] Problems Description No Information Available Social History [...] Prefill Syr sharmila lt knee #1 mkm/hd 05/14/20 Daron Haywood MD 05/14 Valium 5mg Tablets take one half hour [...] Angel Winston MD Vitamin D3 Ultra Potency 19000Adqv Tablets 1 by mouth weekly for 12 [...] every day Unknown Calcium 500 + D [id number]-Iwgt Tab lets 1 by mouth twice a day Unknown Chelated Magnesium 100mg Tablets Unknown Multivitamin Adult Tablets 2 by mouth every day Unknown Vitamin D (Ergocalciferol) 1.25mg (97771 Ut) Capsules Adolph Escobar MD Atorvastatin Calcium [...] H/L Range Note Laboratory test finding [facility] [address] [place] [address] (315)- - Coronavirus 2019 Nasopharygeal This nucleic aci <SEE NOTE> 1 Prothrombin Time/Inr 03/25/2020 [facility] C entr [address] [place] [address] (315)- - Prothrombin Time 12.7 seconds Normal 12.5-14.3 Inr 0.93 Normal 2 Laboratory test finding 03/25/2020 [facility] [address] [place] [address] (315)- - Partial Thromboplastin Time 29.7 seconds Normal 24.2-3 8.5 Platelet Count, Automated 285 10 Normal 150-450 1 This nucleic acid amplificat ion test was developed and its performance characteristics determined by [employer]. Nucleic acid amplification tests include PCR and [...] detected) result in this assay. Performed at: [facility] [address], [place] [id number] Marketing Project Manager: Khushbu Teran PhD, Phone: [phone] Not Detected 2 THERAPUTIC HUMAN INR VALUES INDICATIONS NORMAL RANGES PROPHYLAXIS/TREATMENT OF: VENOUS THROMBOSIS 2.0-3.0 PULMONARY EMBOLISM 2.0-3.0 PREVENTION OF SYSTEMIC EMBOLISM FROM: TISSUE HEART VALVES 2.0-3.0 ACUTE MYOCARDIAL INFARCTION 2.0-3.0 VALVULAR HEART DISEASE 2.0-3.0 ATRIAL FIBRILLATION 2.0-3.0 MECHANICAL VALVES(HIGH RISK) 2.5-3.5 RECURRENT MYOCARDIAL INFARCTION 2.5-3.5 Procedures Date Code Description Status 05/11/2020 37746 Moderate Sedation Se rvices; Same Phys Intl 15 Mins; PT >= 5 Years Completed 05/11/2020 29428 Epidurography Radiological Super vision & Interpretation Completed 05/11/2020 42939 Injec Anesthetic Age nt/Steroid Trans Epidural Lumb/Sacral Single Completed Medical Devices Description No Information Available Encounters Type Date Location Provider Dx Diagnosis Office Visit 03/25/2020 9:30a [place] M47.27 [...] 06/01/2020 10:30 am - [facility] at [place] * 06/04/2020 9:45 am - Aditya Fulton [facility] at [place] * 05/21/2020 9:15 am - Aditya Fulton [place] at [place] 03/25/2020 - [facility]* M47.27 Other spondylosis with radiculopathy, lumbosacral region* Follow up:* after KACI injections * M51.37 Other intervertebral disc degeneration, lumbosacral region * M51.27 Other intervertebral disc displacement, lumbosacral region Functional Status Description No Information Available Mental Status Description No Information Available Referrals Refer to Reason for Referral Status Appt Date Melecio Hidalgo MD Created [address] [place] [address] [phone] Melecio Hidalgo MD Left knee Euflexxa-No authorization req. C reated [address] [place] [phone] Aditya Fulton PA KACI 58106 [id number] RT AND LT L4 TRANSFORAMINAL KACI NO AUTH REQUIRED. PASSED TO SURGERY. LS Created [address] [facility] [address] [place] [address] [phone] Kaveh Maher MD REF NO AUTH REQUIRED FOR REF TO DR ALEJANDRO TO TRANS NT Created [address] [facility], [address] [place] [address] [phone]
--- OUTSIDE RECORDS SUMMARY | 2020-05-29 10:23 | CCD | Continuity of Care Document ---
Author Author Tiki DELCID MD Organization Unknown Address [address] [place] [address], it e [address] [place] [address] Phone [phone] Care Team Providers Care Chief Hydroelectric Station Operator Name Role Phone Adolph Escobar MD [facility] [phone] Problems Description No Information Available Social History [...] Angel Winston MD Vitamin D3 Ultra Potency 99003Mglh Tablets 1 by mouth weekly for 12 [...] every day Unknown Calcium 500 + D [id number]-Hege Tab lets 1 by mouth twice a day Unknown Chelated Magnesium 100mg Tablets Unknown Multivitamin Adult Tablets 2 by mouth every day Unknown Vitamin D (Ergocalciferol) 1.25mg (39541 Ut) Capsules Adolph Escobar MD Atorvastatin Calcium [...] H/L Range Note Laboratory test finding 05/06/2020 [facility] [address] [place] [address] (315)- - Coronavirus 2019 Nasopharygeal This nucleic aci <SEE NOTE> 1 Prothrombin Time/Inr 03/25/2020 [facility] [address] [place] [address] (315)- - Prothrombin Time 12.7 seconds Normal 12.5-14.3 Inr 0.93 Normal 2 Laboratory test finding 03/25/2020 [facility] [address] [place] [address] (315)- - Partial Thromboplastin Time 29.7 seconds Normal 24.2-3 8.5 Platelet Count, Automated 285 10 Normal 150-450 1 This nucleic acid amplificat ion test was developed and its performance characteristics determined by [facility]. Nucleic acid amplification tests include PCR and [...] detected) result in this assay. Performed at: [email or web address] [address], [place], [place] [id number] Engineering Geologist: Khushbu Teran PhD, Phone: [phone] Not Detected 2 THERAPUTIC HUMAN INR VALUES INDICATIONS NORMAL RANGES PROPHYLAXIS/TREATMENT OF: VENOUS THROMBOSIS 2.0-3.0 PULMONARY EMBOLISM 2.0-3.0 PREVENTION OF SYSTEMIC EMBOLISM FROM: TISSUE HEART VALVES 2.0-3.0 ACUTE MYOCARDIAL INFARCTION 2.0-3.0 VALVULAR HEART DISEASE 2.0-3.0 ATRIAL FIBRILLATION 2.0-3.0 MECHANICAL VALVES(HIGH RISK) 2.5-3.5 RECURRENT MYOCARDIAL INFARCTION 2.5-3.5 Procedures Date Code Description Status 05/11/2020 42144 Moderate Sedation Se rvices; Same Phys Intl 15 Mins; PT >= 5 Years Completed 05/11/2020 35207 Epidurography Radiological Super vision & Interpretation Completed 05/11/2020 87390 Injec Anesthetic Age nt/Steroid Trans Epidural Lumb/Sacral Single Completed Medical Devices Description No Information Available Encounters Type Date Location Provider Dx Diagnosis Office Visit 03/[place]/2020 9[place] M47.27 Other spondylosis with radiculopathy, lumbosacral [...] 06/01/2020 10:30 am - [facility] at [place] * 06/04/2020 9:45 am - Ad[facility]a Fulton [place] at [place] * 05/21/2020 9:15 am - Ad[facility]a Fulton [place] at [place] * 05/14/2020 9:45 am - Aditya Fulton P.A. 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 C reated [address] [place] [address], [address] [address] [phone] Aditya Fulton PA KACI [id number] 16335 RT AND LT L4 TRANSFORAMINAL KACI NO AUTH REQUIRED. PASSED TO SURGERY. LS Created [address] [place], [place] [address] [place], [place] [id number] [phone] Kaveh Maehr MD REF NO AUTH REQUIRED FOR REF TO DR ALEJANDRO TO TRANS NT Created [address] [facility], [address] [place] [address] [phone]
--- OUTSIDE RECORDS SUMMARY | 2020-05-29 10:24 | CCD ---
Author Author [facility] Organization [facility] Address Unknown Phone Unavailable Care Team Providers Care Blankbook Forwarder Name Role Phone Eleanor Daniel Unavailable PROBLEMS Type Condition ICD9-CM Code IZJ48-XV Code Onset Dates Condition S tatus SNOMED Code Notes Problem Vitamin D deficiency, unspecified E55.9 Active 25488300 Discovered 08/21. Last Vitamin D level was 58 in 01/2019. Problem Osteopenia M85.80 Active 423290165 She had ost eopenia on bone density [...] History of adenomatous polyp of colon Z86.010 tive 729531835 Had a sessile serrated polyp on colonoscopy in 12/2016. Problem Family history of ovarian cancer Z80.41 Active 487436892 Problem Tinnitus of both ears H93.13 Active 3829221991 102 She has severe tinnitus bilaterally. I added chlorthalidone therapy to her for BPPV, tinnitus. It is possible she has developed Meniere's disease. I stopped chlorthalidone due to left knee pain in late July 2019. Problem Family history of diabetes mellitus (DM) Z83.3 Active 974141499 Problem Other chronic pain G89.29 Active 54297962 Problem Family history of breast cancer Z80.3 Active 024609199 Problem Mixed hyperlipidemia E78.2 Active 184818309 P atient has been advised to exercise regularly and follow a low-fat diet. Has an extremely favorable HDL, but her elevated LDL places her at risk. Lipitor therapy was started in January 2017 at 5 mg three times a week and as of 01/2019 I increased the dose to 10 mg three times a week. Problem Essential hypertension I10 Active 56747722 She has had a history of intermittent blood pressure elevations in the past but in May 2017 she became hypertensive. Thyroid function testing was normal May 2017. I started her on amlodipine but while she was in [place] in June 2017 she developed a rash [...] labile blood pressure elevations in the office. Problem Lumbago with sciatica, right side M54.41 Active 314801737 She has low back pain intermittently and takes meloxicam as needed. She does have history of gastritis from nonsteroidal anti-inflammatory drugs but tolerates meloxicam. She monitors her blood pressure on that therapy. Problem Hot flashes due to menopause N95.1 Active 198 232058 ALLERGIES Allergen (clinical drug ingredient) Drug/Non Drug Allergy do cumented on EMR Reaction Allergy Type Onset Date Status metoclopramide Reglan(ND Code:[address]-88) burning feeling Drug Al lergy Active alendronate Alendronate Sodium(NDC Code:[address]-4 1) Swelling in the knees February 2019 Drug Allergy Active imiquimod Imiquimod(NDC Code:[address]-53) blister, heada ches, muscle aches Drug Allergy Active Prednisone MÉNDEZ, rash Drug Allergy Active ENCOUNTERS from 1950 to 2020-03-06 Encounter Location Date Provider Diagnosis [facility] [place] [address] Feb, Eleanor Loeraage IMMUNIZATIONS Vaccine Route Administration Date Status Influenza (18 yrs & older) Flublok IM Intramuscular Mar 06, 2019 Administered Influenza (18 yrs & older) Flublok IM Intramuscular Mar 12, 2018 Administered Zoster 50mcg/0.5mL (Shingrix) Unknown December 11, 2017 Ad ministered Zoster 50mcg/0.5mL (Shingrix) Unknown September 06, 2017 Ad ministered Depo-Medrol 40mg (Methylpredisolone Acetate) IM Intramuscular Au g 2018 Administered Depo-Medrol 40mg (Methylpredisolone Acetate) IM Intramuscular Fe [...] MEDICATIONS Medication SIG (Take, Route, Frequency, Duration) Start Date En d Date Status Fiber - 2 tabs Orally twice a day Ac tive Calcium 500 + D 500-125 MG-UNIT 1 tablet with food Orally Once a da y Active Fish Oil 1000 MG 1 capsule Orally Once a day Active Probiotic - Orally Active Alavert 10 MG 1 tablet on the tongue and a llow to dissolve Orally Once a day as needed Active Prebiotic Product - 1 tab Orally Daily Ac tive Drisdol 17069 UNIT 1 capsule Orally every other week for 90 days Active Magnesium Citrate 100 MG Orally Act marie Atorvastatin Calcium 10 MG 1 tablet Orally Once a day, Monday, Monday and Monday for 90 days Jan, Active Albuterol Sulfate HFA 108 (90 Base) MCG/ACT 2 puffs In halation every 4 hrs as needed for wheezing for 30 Days Jul, Active Flonase 50 MCG/ACT 2 sprays in each nostril Nasally daily a s needed for 90 days Active PreserVision AREDS 2 - 1 cap Orally once daily Active Multiple Vitamin - 1 tablet Orally Once a day Active PROCEDURES No Information RESULTS No Results REASON FOR VISIT refill-flonase MEDICAL (GENERAL) HISTORY Type Description Date Medical [...] Medication Name Sig Start Date Stop Date Flonase 50 MCG/ACT 2 sprays in each nostril Nasally daily a s needed for 90 days Drisdol 96414 UNIT 1 capsule Orally every other week for 90 days Atorvastatin Calcium 10 MG 1 tablet Orally Once a day, Monday, Monday and Monday for 90 days Jan, Next Appt Details Provider Name:Bc Witt, 2020-03-18 01:00:00 PM, [address] [place] [address], [phone], Provider Name:Adolph Escobar, 2020-09-07 11 :30:00 AM, [address] [place] [address], [phone], Insurance Providers Payer Name Payer Address Payer Phone Insured Name Patient Relati onship to Insured Coverage Start Date Coverage End Date FOR LIFE [address] [facility] [phone] [place]TE ROYAL self MEDICARE Part A and B [address] [facility] [address] EDLORRINE Shanae self [facility] [address] [address] [facility] [phone] [place]TE ROYAL self
--- OUTSIDE RECORDS SUMMARY | 2020-05-29 10:24 | CCD ---
Author Author [facility] Organization [facility] Address Unknown Phone Unavailable Care Team Providers Care Scientific Aide Name Role Phone Adolph Escobar Unavailable PROBLEMS Type Condition ICD9-CM Code RSV48-FC Code Onset Dates Condition S tatus SNOMED Code Notes Problem Vitamin D deficiency, unspecified E55.9 Active 11929759 Discovered 08/21. Last Vitamin D level was 58 in 01/2019. Problem Osteopenia M85.80 Active 843293365 She had ost eopenia on bone density [...] of adenomatous polyp of colon Z86.010 tive 173771910 Had a sessile serrated polyp on colonoscopy in 12/2016. Problem Family history of ovarian cancer Z80.41 Active 075475914 Problem Tinnitus of both ears H93.13 Active 6973314926 102 She has severe tinnitus bilaterally. I added chlorthalidone therapy to her for BPPV, tinnitus. It is possible she has developed Meniere's disease. I stopped chlorthalidone due to left knee pain in late July 2019. Problem Family history of diabetes mellitus (DM) Z83.3 Active 673368272 Problem Other chronic pain G89.29 Active 84108252 Problem Family history of breast cancer Z80.3 Active 682886769 Problem Mixed hyperlipidemia E78.2 Active 299134155 P atient has been advised to exercise regularly and follow a low-fat diet. Has an extremely favorable HDL, but her elevated LDL places her at risk. Lipitor therapy was started in January 2017 at 5 mg three times a week and as of 01/2019 I increased the dose to 10 mg three times a week. Problem Essential hypertension I10 Active 72472046 She has had a history of intermittent blood pressure elevations in the past but in May 2017 she became hypertensive. Thyroid function testing was normal May 2017. I started her on amlodipine but while she was in [place] in June 2017 she developed a rash [...] Lumbago with sciatica, right side M54.41 Active 774848339 She has low back pain intermittently and takes meloxicam as needed. She does have history of gastritis from nonsteroidal anti-inflammatory drugs but tolerates meloxicam. She monitors her blood pressure on that therapy. Problem Hot flashes due to menopause N95.1 Active 198 917564 ALLERGIES Allergen (clinical drug ingredient) Drug/Non Drug Allergy do cumented on EMR Reaction Allergy Type Onset Date Status metoclopramide Reglan(ND Code:[address]-25) burning feeling Drug Al lergy Active alendronate Alendronate Sodium(ND Code:[address]-2 1) Swelling in the knees February 2019 Drug Allergy Active imiquimod Imiquimod(NDC Code:[address]-89) blister, heada ches, muscle aches Drug Allergy Active Prednisone MÉNDEZ, rash Drug Allergy Active ENCOUNTERS from 1950 to 2020-03-05 Encounter Location Date Provider Diagnosis [facility] [place] [address] [place] [address] Feb, Adolph Escobar Mixed hyperlipidemia E78.2 and Vitamin D deficiency, unspecified E55.9 IMMUNIZATIONS Vaccine Route Administration Date Status Influenza [...] 1 tab Orally Daily Ac tive Drisdol 20461 UNIT 1 capsule Orally every other week [...] Information RESULTS No Results REASON FOR VISIT refill-lipitor, drisdol, flonase MEDICAL (GENERAL) HISTORY Type Description Date Medical [...] No Information FUNCTIONAL STATUS No Information ASSESSMENTS Encounter Date Diagnosis Notes Feb, Vitamin D deficiency, unspecified (ICD-1 0 - E55.9) Feb, Mixed hyperlipidemia (ICD-10 - E78.2) PLAN OF TREATMENT Medication Medication Name Sig Start Date Stop Date Flonase 50 MCG/ACT 2 sprays in each nostril Nasally daily a s needed for 90 days Drisdol 66444 UNIT 1 capsule Orally every other week for 90 days Atorvastatin Calcium 10 MG 1 tablet Orally Once a day, Monday, Monday and Monday for 90 days Jan, Next Appt Details Provider Name:Bc Witt 2020-03-18 01:00:00 PM, [address] [place], [address], Provider Name:Adolph Escobar, 2020-09-07 11 :30:00 AM, [address] [place], [address], Insurance Providers Payer Name Payer Address Payer Phone Insured Name Patient Relati onship to Insured Coverage Start Date Coverage End Date [facility] [address] [id number] [facility] [phone] ROYAL,LORRINE E self MEDICARE Part A and B [address] [facility] [phone] ROYAL,LORRINE E self FOR LIFE [address] [facility] [address] ROYAL,LORRINE E self
--- OUTSIDE RECORDS SUMMARY | 2020-05-29 10:24 | CCD | Continuity of Care Document ---
Author Author Tiki VILLAR PA Organization Unknown Address [address] [place] [address] Phone [phone] Care Team Providers Care Director Business Integration Name Role Phone Adolph Escobar MD AUT [phone] Problems Description No Information Available Social History [...] Angel Winston MD Vitamin D3 Ultra Potency 01054Soei Tablets 1 by mouth weekly for 12 [...] every day Unknown Calcium 500 + D [id number]-Vwqk Tab lets 1 by mouth twice a day Unknown Chelated Magnesium 100mg Tablets Unknown Multivitamin Adult Tablets 2 by mouth every day Unknown Vitamin D (Ergocalciferol) 1.25mg (01899 Ut) Capsules Adolph Escobar MD Atorvastatin Calcium [...] Result H/L Range Note Prothrombin Time/Inr 03/25/2020 [facility] [address] [place] [address] (315)- - Prothrombin Time 12.7 seconds Normal 12.5-14.3 Inr 0.93 Normal 1 Laboratory test finding 03/25/2020 [facility] [address] [place] [address] (315)- - Partial Thromboplastin Time 29.7 seconds [...] 2.5-3.5 Procedures Date Code Description Status 10/24/2019 46103 Inject/Drain Joint/Bursa Major C ompleted 10/21/2019 38812 Therapeutic Procedure, Each 15 M inutes Completed 10/21/2019 52860 Ultrasound, Each 15 Min, Constan t Attendance Completed 10/17/2019 15831 Therapeutic Procedure, Each 15 M inutes Completed 10/17/2019 96082 Ultrasound, Each 15 Min, Constan t Attendance Completed 10/15/2019 27222 Therapeutic Procedure, Each 15 M inutes Completed 10/10/2019 34541 Therapeutic Procedure, Each 15 M inutes Completed 10/10/2019 10031 Hot Or Cold Packs Completed 10/03/2019 03016 Inject/Drain Joint/Bursa Major C ompleted 10/02/2019 03847 Therapeutic Procedure, Each 15 M inutes Completed 09/30/2019 39300 Therapeutic Procedure, Each 15 M inutes Completed 09/26/2019 99198 Therapeutic Procedure, Each 15 M inutes Completed 09/26/2019 79291 Ultrasound, Each 15 Min, Constan t Attendance Completed 09/26/201923425 Inject/Drain Joint/Bursa Major C ompleted Medical Devices Description No Information Available Encounters Type Date Location Provider Dx Diagnosis Office Visit 03/25/2020 9:30a [place] [facility] M47.27 Other spondylosis with radiculopathy, [...] Unilateral primary osteoarthriti s, left knee Ludwin VelascoTRonak 10/17/2019 M17.12 Unilateral primary osteoarthriti s, left knee Luciana Cordova, GLOVE BRUSHER 10/15/2019 M17.12 Unilateral primary osteoarthriti s, left knee Geena Scee P.T.A. 10/10/2019 M17.12 Unilateral primary osteoarthriti s, left knee Geena Scee P.T.A. 10/03/2019 M25.511 Pain in right shoulder Julito Maher MD 10/03/2019 M19.011 Primary osteoarthritis, right sh oulder Julito Maher MD 10/02/2019 M17.12 Unilateral primary osteoarthriti s, left knee Geena Scee P.T.A. 09/30/2019 M17.12 Unilateral primary osteoarthriti s, left knee Geena Scee P.T.A. 09/26/2019 M17.12 Unilateral primary osteoarthriti s, left knee Julito Maher MD 09/26/2019 M17.12 Unilateral primary osteoarthriti s, left knee Ludwin Banda P.T. Plan of Treatment Future Appointment(s):* 05/14/2020 9:45 am - Cristian Black at [place] * 05/06/2020 9:45 am - Cristian Black at [place] 03/25/2020 - [facility]* M47.27 Other spondylosis with radiculopathy, lumbosacral region* New Orders:* [facility]HH Injections, Ordered: 03/25/20 * Follow up:* after neeraj injections * M51.37 Other intervertebral disc degeneration, lumbosacral region * M51.27 Other intervertebral disc displacement, lumbosacral region Functional Status Description No Information Available Mental Status Description No Information Available Referrals Refer to Dr Reason for Referral Status Appt Date Kaveh Maher MD REF NO AUTH REQUIRED FOR REF TO DR ALEJANDRO TO TRANS NT Created [address] [facility], [address] [place] [address] [phone]
--- OUTSIDE RECORDS SUMMARY | 2020-05-29 10:24 | CCD | Continuity of Care Document ---
Author Author Tiki JEAN PA Organization Unknown Address [address] [place] [address] Phone [phone] Care Team Providers Care Fws Faculty Assistant Name Role Phone Adolph Escobar MD AUT [phone] Problems Description No Information Available Social History [...] Angel Winston MD Vitamin D3 Ultra Potency 67510Pbze Tablets 1 by mouth weekly for 12 [...] every day Unknown Calcium 500 + D [id number]-Iupa Tab lets 1 by mouth twice a day Unknown Chelated Magnesium 100mg Tablets Unknown Multivitamin Adult Tablets 2 by mouth every day Unknown Vitamin D (Ergocalciferol) 1.25mg (31725 Ut) Capsules Adolph Escobar MD Atorvastatin Calcium 10mg Tablets Adolph Escobar MD Immunizations Description No Information Available Vital Signs Date Vital Result Comment 08/22/2019 9:11am Height 64 inches 5'4" Weight 175.00 lb BMI (Body Mass Index) 30.0 kg/m2 01/08/2018 3:24pm Height 64 inches 5'4" Weight 171.00 lb BMI (Body Mass Index) 29.3 kg/m2 Procedures Date Code Description Status 10/24/2019 39339 Inject/Drain Joint/Bursa Major C ompleted 10/21/2019 68167 Therapeutic Procedure, Each 15 M inutes Completed 10/21/2019 31885 Ultrasound, Each 15 Min, Constan t Attendance Completed 10/17/2019 81674 Therapeutic Procedure, Each 15 M inutes Completed 10/17/2019 20862 Ultrasound, Each 15 Min, Constan t Attendance Completed 10/15/2019 04624 Therapeutic Procedure, Each 15 M inutes Completed 10/10/2019 10081 Therapeutic Procedure, Each 15 M inutes Completed 10/10/2019 58709 Hot Or Cold Packs Completed 10/03/2019 35057 Inject/Drain Joint/Bursa Major C ompleted 10/02/2019 62600 Therapeutic Procedure, Each 15 M inutes Completed 09/30/2019 16104 Therapeutic Procedure, Each 15 M inutes Completed 09/26/2019 06311 Therapeutic Procedure, Each 15 M inutes Completed 09/26/2019 26673 Ultrasound, Each 15 Min, Constan t Attendance Completed 09/26/201960467 Inject/Drain Joint/Bursa Major C ompleted Medical Devices Description No Information Available Encounters Type Date Location Provider Dx Diagnosis Office Visit 03/25/2020 9:30a [place] Indra Jean PA M47.27 Other spondylosis with radiculopathy, lumbosacral region [...] Unilateral primary osteoarthriti s, left knee Ludwin Bernstein.T. 10/17/2019 M17.12 Unilateral primary osteoarthriti s, left knee Luciana Cordova, HISTOPATHOLOGY TECHNICIAN 10/15/2019 M17.12 Unilateral primary osteoarthriti s, left [...] 05/14/2020 9:45 am - Cristian Black at [place] * 05/06/2020 9:45 am - Cristian Black at [place] 03/25/2020 - [facility]* M47.27 Other spondylosis with radiculopathy, lumbosacral region* New Labs:* Prothrombin Time/Inr, Ordered: 03/25/20 * Partial Thromboplastin Time, Ordered: 03/25/20 * Platelet Count, Automated, Ordered: 03/25/20 * New Orders:* [facility] Injections, Ordered: 03/25/20 * Follow up:* after neeraj injections * M51.37 Other intervertebral disc degeneration, lumbosacral region * M51.27 Other intervertebral disc displacement, lumbosacral region Functional Status Description No Information Available Mental Status Description No Information Available Referrals Refer to Reason for Referral Status Appt Date Kaveh Maher MD REF NO AUTH REQUIRED FOR REF TO DR ALEJANDRO TO TRANS NT Created [address] [facility], [address] [place] [address] [phone]
--- OUTSIDE RECORDS SUMMARY | 2020-05-29 10:24 | CCD ---
Author Author [facility] Organization [facility] Address Unknown Phone Unavailable Care Team Providers Care Pattern Duplicator Name Role Phone Adolph Escobar Unavailable PROBLEMS Type Condition ICD9-CM Code [id number] Code Onset Dates Condition S tatus SNOMED Code Notes Problem Vitamin D deficiency, unspecified E55.9 Active 96101877 Discovered 08/21. Last Vitamin D level was 58 in 01/2019. Problem Osteopenia M85.80 Active 488766139 She had ost eopenia on bone density [...] of adenomatous polyp of colon Z86.010 tive 566548911 Had a sessile serrated polyp on colonoscopy in 12/2016. Problem Family history of ovarian cancer Z80.41 Active 685850697 Problem Tinnitus of both ears H93.13 Active 8661389194 102 She has severe tinnitus bilaterally. I added chlorthalidone therapy to her for BPPV, tinnitus. It is possible she has developed Meniere's disease. I stopped chlorthalidone due to left knee pain in late July 2019. Problem Family history of diabetes mellitus (DM) Z83.3 Active 566925787 Problem Other chronic pain G89.29 Active 47739321 Problem Family history of breast cancer Z80.3 Active 358567772 Problem Mixed hyperlipidemia E78.2 Active 548010460 P atient has been advised to exercise regularly and follow a low-fat diet. Has an extremely favorable HDL, but her elevated LDL places her at risk. Lipitor therapy was started in January 2017 at 5 mg three times a week and as of 01/2019 I increased the dose to 10 mg three times a week. Problem Essential hypertension I10 Active 89115105 She has had a history of intermittent blood pressure elevations in the past but in May 2017 she became hypertensive. Thyroid function testing was normal May 2017. I started her on amlodipine but while she was in [place] in June 2017 she developed a rash [...] Lumbago with sciatica, right side M54.41 Active 989989164 She has low back pain intermittently and takes meloxicam as needed. She does have history of gastritis from nonsteroidal anti-inflammatory drugs but tolerates meloxicam. She monitors her blood pressure on that therapy. Problem Hot flashes due to menopause N95.1 Active 198 308485 ALLERGIES Allergen (clinical drug ingredient) Drug/Non Drug Allergy do cumented on EMR Reaction Allergy Type Onset Date Status metoclopramide Reglan(ND Code:[address]-62) burning feeling Drug Al lergy Active alendronate Alendronate Sodium(ND Code:[address]-8 1) Swelling in the knees February 2019 Drug Allergy Active imiquimod Imiquimod(NDC Code:[address]-96) blister, heada ches, muscle aches Drug Allergy Active Prednisone MÉNDEZ, rash Drug Allergy Active ENCOUNTERS from 1950 to 2020-03-05 Encounter Location Date Provider Diagnosis [facility] [place] [address] [place] [address] Feb, [facility] Vaccine Route Administration Date Status Influenza (18 [...] Depo-Medrol 40mg (Methylpredisolone Acetate) IM Intramuscular Fe 2018 Administered Influenza (18 yrs & older) [...] 1 tab Orally Daily Ac tive Drisdol 07861 UNIT 1 capsule Orally every other week [...] Information RESULTS No Results REASON FOR VISIT Mr Piña MEDICAL (GENERAL) HISTORY Type Description Date Medical [...] a s needed for 90 days Drisdol 83647 UNIT 1 capsule Orally every other week for 90 days Atorvastatin Calcium 10 MG 1 tablet Orally Once a day, Monday, Monday and Monday for 90 days Jan, Next Appt Details Provider Name:Bc Witt, 2020-03-18 01:00:00 PM, [address] [place] [address], [phone], Provider Name:Adolph Escobar, 2020-09-07 11 :30:00 AM, [address] [place] [address], [phone], Insurance Providers Payer Name Payer Address Payer Phone Insured Name Patient Relati onship to Insured Coverage Start Date Coverage End Date MEDICARE Part A and B [address] [facility] [phone] JANE ROYALRINE E self FOR LIFE [address] [facility] [address] ROYALLORRINE E self [facility] [address] [id number] [facility] [address] ROYAL,LORRINE E self
--- OUTSIDE RECORDS SUMMARY | 2020-05-29 10:24 | CCD ---
Author Author [facility] Organization [facility] Address Unknown Phone Unavailable Care Team Providers Care Crown And Bridge Technician Name Role Phone Adolph Escobar Unavailable PROBLEMS Type Condition ICD9-CM Code VIT13-XH Code Onset Dates Condition S tatus SNOMED Code Notes Problem Vitamin D deficiency, unspecified E55.9 Active 32891583 Discovered 08/21. Last Vitamin D level was therapeutic in 02/2020. Problem Osteopenia M85.80 Active 052732517 She had ost eopenia on bone density [...] adenomatous polyp of colon Z86.010 Ac tive 510213663 Had a sessile serrated polyp on colonoscopy in 12/2016. Problem Family history of ovarian cancer Z80.41 Active 644255619 Problem Tinnitus of both ears H93.13 Active 9746429405 102 She has severe tinnitus bilaterally. I added chlorthalidone therapy to her for BPPV, tinnitus. It is possible she has developed Meniere's disease. I stopped chlorthalidone due to left knee pain in late July 2019. Restarted 2-3 times a week in 02/2020. Problem Family history of diabetes mellitus (DM) Z83.3 Active 638700605 Problem Other chronic pain G89.29 Active 20809746 Problem Family history of breast cancer Z80.3 Active 354577783 Problem Mixed hyperlipidemia E78.2 Active 603634579 P atient has been advised to exercise [...] of 02/2020. Problem Essential hypertension I10 Active 68895327 She has had a history of intermittent blood pressure elevations in the past but in May 2017 she became hypertensive. Thyroid function testing was normal May 2017. I started her on amlodipine but while she was in [place] in June 2017 she developed a rash [...] Lumbago with sciatica, right side M54.41 Active 528505950 She has low back pain intermittently and takes meloxicam as needed. She does have history of gastritis from nonsteroidal anti-inflammatory drugs but tolerates meloxicam. She monitors her blood pressure on that therapy. Problem Hot flashes due to menopause N95.1 Active 198 775756 ALLERGIES Allergen (clinical drug ingredient) Drug/Non Drug Allergy do cumented on EMR Reaction Allergy Type Onset Date Status metoclopramide Reglan(NDC Code:[address]-55) burning feeling Drug Al lergy Active alendronate Alendronate Sodium(NDC Code:[address]-3 1) Swelling in the knees February 2019 Drug Allergy Active imiquimod Imiquimod(NDC Code:[address]-51) blister, heada ches, muscle aches Drug Allergy Active Prednisone MÉNDEZ, rash Drug Allergy Active ENCOUNTERS from 1950 to 2020-03-14 Encounter Location Date Provider Diagnosis [address] [address] Feb, Frank Rhode Medicare annual wellness visit, subseque nt Z00.00 ; Mixed hyperlipidemia E78.2 ; Essential hypertension I10 ; Vitamin D deficiency, unspecified E55.9 ; History of adenomatous polyp of colon Z86.010 ; Osteopenia M85.80 ; Lumbago with sciatica, right side M54.41 ; Tinnitus of both ears H93.13 and Encounter for immunization Z23 IMMUNIZATIONS Vaccine Route Administration Date Status Influenza (18 yrs & older) Flublok IM Intramuscular Mar 06, 2019 Administered Influenza (18 yrs & older) Flublok IM Intramuscular Mar 12, 2018 Administered Zoster 50mcg/0.5mL (Shingrix) Unknown December 11, 2017 Ad ministered Zoster 50mcg/0.5mL (Shingrix) Unknown September 06, 2017 Ad ministered Depo-Medrol 40mg (Methylpredisolone Acetate) IM Intramuscular Au 2018 Administered Depo-Medrol 40mg (Methylpredisolone Acetate) IM [...] REASON FOR REFERRAL No Information VITAL SIGNS Weight 175.2 lbs Feb, Height 64.2 in Feb, BMI 29.88 kg/m2 Feb, Heart Rate 116 /min Feb, Respiratory Rate 18 /min Feb, Temperature 98.7 degrees Fahrenheit Feb, Oximetry 98% Feb, Blood pressure systolic 156 mm Hg Feb, Blood pressure diastolic 98 mm Hg Feb, MEDICATIONS Medication SIG (Take, Route, Frequency, Duration) [...] 1 tab Orally Daily Ac tive Drisdol 97100 UNIT 1 capsule Orally every other week for 90 days Active Magnesium Citrate 100 MG Orally Act marie Flonase 50 MCG/ACT 2 sprays in each nostril Nasally daily a s needed for 90 days Active Albuterol Sulfate HFA 108 (90 Base) MCG/ACT 2 puffs In halation every 4 hrs as needed for wheezing for 30 Days Jul, Active Chlorthalidone 25 MG 1 tablet Orally Two to three times a we ek for 90 day(s) Feb, Active PreserVision AREDS 2 - 1 cap Orally once daily Active Multiple Vitamin - 1 tablet Orally Once a day Active Atorvastatin Calcium 10 MG 1 tablet Orally Once a day, Monday, Monday and Monday for 90 days Jan, Active PROCEDURES Procedure Date Ordered Result Body Site Immunization: Flublok Quadrivalent (18 years & older) 0.5mL IM (Influenza) 2020-03-04 N/A RESULTS No Results REASON FOR VISIT Annual wellness exam with labs to review MEDICAL (GENERAL) HISTORY Type Description Date Medical [...] Information ASSESSMENTS Encounter Date Diagnosis Notes Feb, Mixed hyperlipidemia (ICD-10 - E78.2) Frank carrera has been advised to exercise regularly and follow a low-fat diet. Has an extremely favorable HDL, but her elevated LDL placed her at risk. Lipitor therapy was started in January 2017 at 5 mg three times a week and as of 01/2019 I increased the dose to 10 mg three times a week; lipids are controlled as of 02/2020. Feb, Medicare annual wellness visit, emil nt (ICD-10 - Z00.00) Feb, Vitamin D deficiency, unspecified (ICD-1 0 - E55.9) Discovered 08/21. Last Vitamin D level was therapeutic in 02/2020. Feb, Essential hypertension (ICD-10 - I10) Vashti vargas has had a history of intermittent blood pressure elevations in the past but in May 2017 she became hypertensive. Thyroid function testing was normal May 2017. I started her on amlodipine but while she was in [place] in June 2017 she developed a rash [...] chlorthalidone to tolerance, 2-3 times a week. Feb, Encounter for immunization (ICD-10 - Z23 ) Feb, Osteopenia (ICD-10 - M85.80) She had ost eopenia on bone density study in 2004, 2008 and 2010, 2013 and 2015. She is on calcium and vitamin D replacement. Repeat DEXA in 01/2019 demonstrated T-scores in the -2.3 range in the spine and right femur. There was deterioration versus 2016. I started her on alendronate therapy, but she developed bilateral knee discomfort, had intra- articular steroid therapy then, and decided not to continue the medication. Feb, History of adenomatous polyp of colon (I CD-10 - Z86.010) Had a sessile serrated polyp on colonoscopy in 12/2016. Feb, Tinnitus of both ears (ICD-10 - H93.13) She has severe tinnitus bilaterally. I added chlorthalidone therapy to her for BPPV, tinnitus. It is possible she has developed Meniere's disease. I stopped chlorthalidone due to left knee pain in late July 2019. Restarted 2-3 times a week in 02/2020. Feb, Lumbago with sciatica, right side (ICD-1 0 - M54.41) She has low back pain intermittently and takes meloxicam as needed. She does have history of gastritis from nonsteroidal anti-inflammatory drugs but tolerates meloxicam. She monitors her blood pressure on that therapy. PLAN OF TREATMENT Medication Medication Name Sig Start Date Stop Date Chlorthalidone 25 MG 1 tablet Orally Two to three times a we ek for 90 day(s) Feb, Drisdol 85967 UNIT 1 capsule Orally every other week for 90 days Atorvastatin Calcium 10 MG 1 tablet Orally Once a day, Monday, Monday and Monday for 90 days Jan, Flonase 50 MCG/ACT 2 sprays in each nostril Nasally daily a s needed for 90 days Future Test Test Name Order Date Comprehensive Metabolic Profile (CMP) [id number] Next Appt Details 6 Months Reason: Provider Name:Bc Witt, 2020-03-18 01:00:00 PM, [address] [place], [address], Provider Name:Adolph Escobar, 2020-09-07 11 :30:00 AM, [address] [place], [address], Insurance Providers Payer Name Payer Address Payer Phone Insured Name Patient Relati onship to Insured Coverage Start Date Coverage End Date [facility] [address] [facility] [id number] ROYAL,LORRINE E self MEDICARE Part A and B [address] [facility] [phone] ROYAL,LORRINE E self [facility] [address] [id number] [facility] [phone] ROYAL,LORRINE E self
--- OUTSIDE RECORDS SUMMARY | 2020-05-29 10:24 | CCD | Continuity of Care Document ---
Author Author Tiki MAHER MD Organization Unknown Address [address] [place] [address], [address] [place] [address] Phone [phone] Care Team Providers Care Merchandise For Resale Purchasing Agent Name Role Phone Adolph Escobar MD AUTM [phone] Problems Description No Information Available Social History [...] 09/26/2019 dpv/rs M17.12 Julito Maher MD 2019 Gabapentin 300mg Capsules 1 tab po qhs for one week, then one tab po bid for one week then one tab po tid 90caps M75.42 Julito Maher MD 05/03/2018 Tizanidine HCL 2mg Capsules 1 by mouth up to 4 times a day as needed 30caps M75.42 Angel Winston MD Gabapentin 100mg Capsules 1 by mouth for 1 week then 1 by mouth twice a day 60caps M79.661 Merrick hunt MD 02/01/2018 Atorvastatin Calcium 10mg Tablets Adolph Escobar MD Vitamin D (Ergocalciferol) 1.25mg (86012 Ut) Capsules Adolph Escobar MD Multivitamin Adult Tablets 2 by mouth every day Unknown Chelated Magnesium 100mg Tablets Unknown Calcium 500 + D [id number] Tab lets 1 by mouth twice a day Unknown Preservision Areds 2 Areds 2 Capsu les 1 by mouth every day Unknown Vanegas Colon Health Capsules Unknown Fish Oil 1000mg Capsules 1 by mouth every day Unknown Ibuprofen 200 200mg Tablets by mouth as needed Unknown Alavert 10mg Tablets Dispers Unknown Fluticasone Propionate 50mcg/Act Suspension 2 sprays each nostril daily Unknown Zyrtec Allergy 10mg Tablets 1 by mouth every day Unknown Vitamin D3 Ultra Potency 78707Nave Tablets 1 by mouth weekly for 12 weeks Unknown Immunizations Description No Information Available Vital Signs Date Vital Result Comment 08/22/2019 9:11am Height 64 inches 5'4" Weight 175.00 lb BMI (Body Mass Index) 30.0 kg/m2 01/08/2018 3:24pm Height 64 inches 5'4" Weight 171.00 lb BMI (Body Mass Index) 29.3 kg/m2 Results Description No Information Available Procedures Date Code Description Status 10/24/201935130 Inject/Drain Joint/Bursa Major C ompleted 10/21/2019 03438 Therapeutic Procedure, Each 15 M inutes Completed 10/21/2019 43210 Ultrasound, Each 15 Min, Seda t Attendance Completed 10/17/2019 01418 Therapeutic Procedure, Each 15 M inutes Completed 10/17/2019 06219 Ultrasound, Each 15 Min, Seda t Attendance Completed 10/15/2019 25457 Therapeutic Procedure, Each 15 M inutes Completed 10/10/2019 92824 Therapeutic Procedure, Each 15 M inutes Completed 10/10/2019 14858 Hot Or Cold Packs Completed 10/03/2019 77086 Inject/Drain Joint/Bursa Major C ompleted 10/02/2019 27752 Therapeutic Procedure, Each 15 M inutes Completed 09/30/2019 26839 Therapeutic Procedure, Each 15 M inutes Completed 09/26/2019 75481 Therapeutic Procedure, Each 15 M inutes Completed 09/26/2019 59703 Ultrasound, Each 15 Min, Constan t Attendance Completed 09/26/201967160 Inject/Drain Joint/Bursa Major C ompleted 09/23/2019 22131 Therapeutic Procedure, Each 15 M inutes Completed 09/23/2019 95777 Ultrasound, Each 15 Min, Constan t Attendance Completed 09/20/2019 11018 Therapeutic Procedure, Each 15 M inutes Completed 09/17/201961201 Inject/Drain Joint/Bursa Major C ompleted 09/16/2019 36214 Physical Therapy Eval - Low Comp lexity Completed 09/11/201913957 Inject/Drain Joint/Bursa Major C ompleted Medical Devices Description No Information Available Encounters Description No Information Available Assessments Date Code Description Provider 03/10/2020 M51.36 Other intervertebral disc degene ration, lumbar region Julito Maher MD 03/10/2020 M48.062 Spinal stenosis, lumbar region w ith neurogenic claudication Julito Maher MD 01/31/2020 M17.12 Unilateral primary osteoarthriti s, left knee Julito Maher MD 10/24/2019 M17.12 Unilateral primary osteoarthriti s, left knee Julito Maher MD 10/21/2019 M17.12 Unilateral primary osteoarthriti s, left knee Ludwin Banda P.T. 10/17/2019 M17.12 Unilateral primary osteoarthriti s, left knee Luciana Cordova, FRONT DESK MANAGER 10/15/2019 M17.12 Unilateral primary osteoarthriti s, left [...] Unilateral primary osteoarthriti s, left knee Ludwin Puentes. Cook P.T. 09/23/2019 M17.12 Unilateral primary osteoarthriti s, left knee Ludwin Puentes. Cook P.T. 09/20/2019 M17.12 Unilateral primary osteoarthriti s, left knee Geena Scee P.T.A. 09/17/2019 M17.12 Unilateral primary osteoarthriti s, left knee Julito Maher MD 09/16/2019 M17.12 Unilateral primary osteoarthriti s, left knee Ludwin Puentes. Cook P.T. 09/11/2019 M17.12 Unilateral primary osteoarthriti s, left knee Julito Maher MD Plan of Treatment 03/10/2020 - Julito Maher MD* M51.36 Other intervertebral disc degeneration, lumbar region* Follow up:* next avail neeraj eval with [facility] per dpv leaving for [place] * M48.062 Spinal stenosis, lumbar region with neurogenic claudication Functional Status Description No Information Available Mental Status Description No Information Available Referrals Refer to Dr Reason for Referral Status Appt Date Aditya Fulton PA PT- LT KNEE NO AUTH REQUIRED. PASSE D TO PT DEPT. LS Created [address] [place], [place] [id number] [place] [id number] [phone] Kaveh Maher MD EUFLEXXA INJ'S NO AUTH REQUIRED TO SCHEDULING NT Created [address] [place] [address], [address] [place] [address] [phone]
--- OUTSIDE RECORDS SUMMARY | 2020-05-29 10:24 | CCD ---
Author Author [facility] Organization [facility] Address Unknown Phone Unavailable Care Team Providers Care Road Machinery Inspector Name Role Phone Isaac Najera Unavailable PROBLEMS Type Condition ICD9-CM Code EEI70-WU Code Onset Dates Condition S tatus SNOMED Code Notes Problem Vitamin D deficiency, unspecified E55.9 Active 20667654 Discovered 08/21. Last Vitamin D level was therapeutic in 02/2020. Problem Osteopenia M85.80 Active 617917024 She had ost eopenia on bone density [...] adenomatous polyp of colon Z86.010 Ac tive 855519092 Had a sessile serrated polyp on colonoscopy in 12/2016. Problem Family history of ovarian cancer Z80.41 Active 367262583 Problem Tinnitus of both ears H93.13 Active 2125715275 102 She has severe tinnitus bilaterally. I added chlorthalidone therapy to her for BPPV, tinnitus. It is possible she has developed Meniere's disease. I stopped chlorthalidone due to left knee pain in late July 2019. Restarted 2-3 times a week in 02/2020. Problem Family history of diabetes mellitus (DM) Z83.3 Active 567812927 Problem Other chronic pain G89.29 Active 03625418 Problem Family history of breast cancer Z80.3 Active 377937346 Problem Mixed hyperlipidemia E78.2 Active 081704664 P leslee has been advised to exercise regularly and [...] of 02/2020. Problem Essential hypertension I10 Active 18136419 She has had a history of intermittent blood pressure elevations in the past but in May 2017 she became hypertensive. Thyroid function testing was normal May 2017. I started her on amlodipine but while she was in [place] in June 2017 she developed a rash [...] Lumbago with sciatica, right side M54.41 Active 677802216 She has low back pain intermittently and takes meloxicam as needed. She does have history of gastritis from nonsteroidal anti-inflammatory drugs but tolerates meloxicam. She monitors her blood pressure on that therapy. Problem Hot flashes due to menopause N95.1 Active 198 194200 ALLERGIES Allergen (clinical drug ingredient) Drug/Non Drug Allergy do cumented on EMR Reaction Allergy Type Onset Date Status metoclopramide Reglan(NDC Code:[address]-72) burning feeling Drug Al lergy Active alendronate Alendronate Sodium(NDC Code:[address]-0 1) Swelling in the knees February 2019 Drug Allergy Active imiquimod Imiquimod(NDC Code:[address]-75) blister, heada ches, muscle aches Drug Allergy Active Prednisone MÉNDEZ, rash Drug Allergy Active ENCOUNTERS from 1950 to 2020-03-17 Encounter Location Date Provider Diagnosis [facility] [address] [place] [address] Mar, Isaac Najera IMMUNIZATIONS Vaccine Route Administration Date Status Influenza [...] 1 tab Orally Daily Ac tive Drisdol 96840 UNIT 1 capsule Orally every other week [...] Information RESULTS No Results REASON FOR VISIT NEW PATIENT APPOINTMENT MEDICAL (GENERAL) HISTORY Type Description Date Medical [...] we ek for 90 day(s) Feb, Drisdol 89797 UNIT 1 capsule Orally every other week for 90 days Atorvastatin Calcium 10 MG 1 tablet Orally Once a day, Monday, Monday and Monday for 90 days Jan, Flonase 50 MCG/ACT 2 sprays in each nostril Nasally daily a s needed for 90 days Next Appt Details Provider Name:Luis Enrique Tipton, 2020-03-18 0 1:00:00 PM, [address] [place] [address], [place], [address], Provider Name:Adolph Escobar, 2020-09-07 11 :30:00 AM, [address] [place] [address], [phone], Insurance Providers Payer Name Payer Address Payer Phone Insured Name Patient Relati onship to Insured Coverage Start Date Coverage End Date [facility] [address] [id number] [facility] [phone] ROYAL,LORRINE E self MEDICARE Part A and B [address] [facility] [address] ROYAL,LORRINE E self FOR LIFE [address] [facility] [address] ROYAL,LORRINE E self
--- OUTSIDE RECORDS SUMMARY | 2020-05-29 10:24 | CCD | Continuity of Care Document ---
Author Author Tiki MAHER MD Organization Unknown Address [address] [place] [address], [address] [place] [address] Phone [phone] Care Team Providers Care Automatic Developer Name Role Phone Adolph Escobar MD AUTM [phone] Problems Description No Information Available Social History [...] Adolph Escobar MD Vitamin D (Ergocalciferol) 1.25mg (47906 Ut) Capsules Adolph Escobar MD Multivitamin Adult Tablets 2 by mouth every day Unknown Chelated Magnesium 100mg Tablets Unknown Calcium 500 + D [id number] Tab lets 1 by mouth twice a [...] every day Unknown Vitamin D3 Ultra Potency [id number] Tablets 1 by mouth weekly for 12 weeks Unknown Immunizations Description No Information Available Vital Signs Date Vital Result Comment 08/22/2019 9:11am Height 64 inches 5'4" Weight 175.00 lb BMI (Body Mass Index) 30.0 kg/m2 01/08/2018 3:24pm Height 64 inches 5'4" Weight 171.00 lb BMI (Body Mass Index) 29.3 kg/m2 Results Description No Information Available Procedures Date Code Description Status 10/24/201983880 Inject/Drain Joint/Bursa Major C ompleted 10/21/2019 02892 Therapeutic Procedure, Each 15 M inutes Completed 10/21/2019 99612 Ultrasound, Each 15 Min, Seda t Attendance Completed 10/17/2019 14289 Therapeutic Procedure, Each 15 M inutes Completed 10/17/2019 00377 Ultrasound, Each 15 Min, Seda t Attendance Completed 10/15/2019 54496 Therapeutic Procedure, Each 15 M inutes Completed 10/10/2019 93825 Therapeutic Procedure, Each 15 M inutes Completed 10/10/2019 25525 Hot Or Cold Packs Completed 10/03/2019 28902 Inject/Drain Joint/Bursa Major C ompleted 10/02/2019 25974 Therapeutic Procedure, Each 15 M inutes Completed 09/30/2019 52449 Therapeutic Procedure, Each 15 M inutes Completed 09/26/2019 63771 Therapeutic Procedure, Each 15 M inutes Completed 09/26/2019 85877 Ultrasound, Each 15 Min, Constan t Attendance Completed 09/26/2019 85302 Inject/Drain Joint/Bursa Major C ompleted 09/23/2019 76893 Therapeutic Procedure, Each 15 M inutes Completed 09/23/2019 84981 Ultrasound, Each 15 Min, Constan t Attendance Completed 09/20/2019 76764 Therapeutic Procedure, Each 15 M inutes Completed Medical Devices Description No Information Available Encounters Description No Information Available Assessments Date Code Description Provider 03/10/2020 M48.07 Spinal stenosis, lumbosacral reg ion Julito Maher MD 01/31/2020 M17.12 Unilateral primary osteoarthriti s, left knee Julito Maher MD 10/24/2019 M17.12 Unilateral primary osteoarthriti s, left knee Julito Maher MD 10/21/2019 M17.12 Unilateral primary osteoarthriti s, left knee Ludwin Bernstein.T. 10/17/2019 M17.12 Unilateral primary osteoarthriti s, left knee Luciana Cordova, [employer]NA[employer] 10/15/2019 M17.12 Unilateral primary osteoarthriti s, left [...] primary osteoarthriti s, left knee Ludwin Bernstein.T. 09/23/2019 M17.12 Unilateral primary osteoarthriti s, left knee Ludwin Foley Solo P.T. 09/20/2019 M17.12 Unilateral primary osteoarthriti s, left knee Geena Yaakov VelascoTBarbara Plan of Treatment Future Appointment(s):* 05/14/2020 9:45 am - [facility] [place] * 05/06/2020 9:45 am - [facility] [place] * 03/25/2020 9:30 am - [facility] at [place] 03/10/2020 - Julito Maher MD* M48.07 Spinal stenosis, lumbosacral region* Follow up:* next avail neeraj eval with [facility] per dpv leaving for [place] Functional Status Description No Information Available Mental Status Description No Information Available Referrals Refer to Reason for Referral Status Appt Date Kaveh Maher MD REF NO AUTH REQUIRED FOR REF TO DR ALEJANDRO TO TRANS NT Created [address] [facility], [address] [place] [address] [phone]
--- OUTSIDE RECORDS SUMMARY | 2020-05-29 10:25 | CCD ---
Author Author [facility] Organization [facility] Address Unknown Phone Unavailable Care Team Providers Care Patient Service Coordinator Name Role Phone MCELHERAN, ROSALINDA PA Unavailable Unavailable MCELHERAN, ROSALINDA PA Unavailable Unavailable MCELHERAN, ROSALINDA PA Unavailable Unavailable MCELHERAN, ROSALINDA PA Unavailable Unavailable MCELHERAN, ROSALINDA PA Unavailable Unavailable MCELHERAN, ROSALINDA PA Unavailable Unavailable MCELHERAN, ROSALINDA PA Unavailable Unavailable MCELHERAN, ROSALINDA PA Unavailable Unavailable MCELHERAN, ROSALINDA PA Unavailable Unavailable MCELHERAN, ROSALINDA PA Unavailable Unavailable MCELHERAN, ROSALINDA PA Unavailable Unavailable MCELHERAN, ROSALINDA PA Unavailable Unavailable MCELHERAN, ROSALINDA PA Unavailable Unavailable MCELHERAN, ROSALINDA PA Unavailable Unavailable MCELHERAN, ROSALINDA PA Unavailable Unavailable MCELHERAN, ROSALINDA PA Unavailable Unavailable MCELHERAN, ROSALINDA PA Unavailable Unavailable MCELHERAN, ROSALINDA PA Unavailable Unavailable MCELHERAN, ROSALINDA PA Unavailable Unavailable MCELHERAN, ROSALINDA PA Unavailable Unavailable MCELHERAN, ROSALINDA PA Unavailable Unavailable MCELHERAN, ROSALINDA PA Unavailable Unavailable MCELHERAN, ROSALINDA PA Unavailable Unavailable MCELHERAN, ROSALINDA PA Unavailable Unavailable MCELHERAN, ROSALINDA PA Unavailable Unavailable MCELHERAN, ROSALINDA PA Unavailable Unavailable MCELHERAN, ROSALINDA PA Unavailable Unavailable MCELHERAN, ROSALINDA PA Unavailable Unavailable JIAN, M CADENCE PA Unavailable Unavailable JIAN, M CADENCE PA Unavailable Unavailable JIAN, M CADENCE PA Unavailable Unavailable JIAN, M CADENCE PA Unavailable Unavailable JIAN, M CADENCE PA Unavailable Unavailable JIAN, M CADENCE PA Unavailable Unavailable JIAN, M CADENCE PA Unavailable Unavailable JIAN, M CADENCE PA Unavailable Unavailable JIAN, M CADENCE PA Unavailable Unavailable JIAN, M CADENCE PA Unavailable Unavailable JIAN, M CADENCE PA Unavailable Unavailable JIAN, M CADENCE PA Unavailable Unavailable JIAN, M CADENCE PA Unavailable Unavailable JIAN, M CADENCE PA Unavailable Unavailable JIAN, M CADENCE PA Unavailable Unavailable JIAN, M CADENCE PA Unavailable Unavailable JIAN, M CADENCE PA Unavailable Unavailable JIAN, M CADENCE PA Unavailable Unavailable JIAN, M CADENCE PA Unavailable Unavailable JIAN, M CADENCE PA Unavailable Unavailable JIAN, M CADENCE PA Unavailable Unavailable JIAN, M CADENCE PA Unavailable Unavailable JIAN, M CADENCE PA Unavailable Unavailable JIAN, M CADENCE PA Unavailable Unavailable Re-disclosure Warning The records that you are about to access may contain information from federally-assisted alcohol or drug abuse programs. If such information is present, then the following federally mandated warning applies: This information has been disclosed to you from records protected by federal confidentiality rules (42 CFR part 2). The federal rules prohibit you from making any further disclosure of this information unless further disclosure is expressly permitted by the written consent of the person to whom it pertains or as otherwise permitted by 42 CFR part 2. A general authorization for the release of medical or other information is NOT sufficient for this purpose. The Federal rules restrict any use of the information to criminally investigate or prosecute any alcohol or drug abuse patient.The records that you are about to access may contain highly sensitive health information, the redisclosure of which is protected by Article 27-F of the [facility] Public Health law. If you continue you may have access to information: Regarding HIV / AIDS; Provided by facilities licensed or operated by the [facility] Office of Mental Health; or Provided by the [facility] Office for People With Developmental Disabilities. If such information is present, then the following [facility] mandated warning applies: This information has been disclosed to you from confidential records which are protected by state law. State law prohibits you from making any further disclosure of this information without the specific written consent of the person to whom it pertains, or as otherwise permitted by law. Any unauthorized further disclosure in violation of state law may result in a fine or alf sentence or both. A general authorization for the release of medical or other information is NOT sufficient authorization for further disc losure. Allergies and Adverse Reactions Type Description Substance Reaction Status Data Source(s ) Drug allergy Prednisone Drug allergy MÉNDEZ, rash Active eCW1 ([facility]) Drug allergy Imiquimod imiquimod blister, headaches, muscle aches Active eCW1 ([facility]) Drug allergy Alendronate Sodium Alendronate Swelling in t he knees February 2019 Swelling Active eCW1 ([facility]) Drug allergy Reglan Metoclopramide burning feeling Active eC W1 ([facility]) Alendronate Sodium Alendronate Sodium Alendronic acid 0.933 MG/M L Oral Solution Swelling Active eCW1 ([facility]) Family History Family Member Name Family Member Gender Family Member Status Date o f Status Description Data Source(s) Unknown Unknown Problem MEDENT ([facility]) Encounters Encounter Providers Location Date Indications Data Source(s ) Office Visit Attender: ROSALINDA RAMSAY Physical Therapy 05/14/2020 08:45:00 AM EST MEDENT ([facility]) Unknown [address] [facility] [address] 05/05/2020 12:00:00 AM EST eCW1 ([facility]) Unknown [address] [facility] [place] [address] 05/04/2020 12:00:00 AM EST eCW1 ([facility]) Outpatient Attender: CADENCE RAMSAY Physical Therapy 03/15 08:30:00 AM EST MEDENT ([facility]) Unknown [address] [facility] [place] [address] 03/17/2020 12:00:00 AM EST eCW1 ([facility]) Unknown [address] [facility] [place] [address] 03/05/2020 12:00:00 AM EDT eCW1 ([facility]) Outpatient [address] [facility] [place] [address] 03/04/2020 12:00:00 AM EDT eCW1 ([facility]) Unknown [address] [facility] [place] [address] 03/04/2020 12:00:00 AM EDT eCW1 ([facility]) [place] [address] [facility] [address] 03/04/2020 12:00:00 AM EDT eCW1 ([facility]) [place] [address] [facility] [address] 02/04/2020 12:00:00 AM EDT eCW1 ([facility]) [place] [address] [facility] [address] 02/04/2020 12:00:00 AM EDT eCW1 ([facility]) [facility] [address] [facility] [address] 01/03/2020 12:00:00 AM EDT eCW1 ([facility]) [facility] [address] [facility] [address] 01/01/2020 12:00:00 AM EDT eCW1 ([facility]) [facility] [address] [facility] [address] 12/04/2019 12:00:00 AM EDT eCW1 ([facility]) [place] [address] [facility] [address] 10/17/2019 12:00:00 AM EDT eCW1 ([facility]) [facility] [place] [address] [facility] [address] 09/28/2019 12:00:00 AM EDT eCW1 ([facility]) [facility] Resident [address] [place] [address] 09/27/2019 12:00:00 AM EDT eCW1 ([facility]) [facility] Resident [address] [place] [address] 09/20/2019 12:00:00 AM EDT eCW1 ([facility]) [facility] Resident [address] [place] [address] 09/06/2019 12:00:00 AM EDT eCW1 ([facility]) [facility] [address] [place] [address], [place] [address] 09/02/2019 12:00:00 AM EDT eCW1 ([facility]) [facility] [address] [place] [address], [place] [address] 08/12/2019 12:00:00 AM EDT eCW1 ([facility]) [facility] [address] [place] [address], [place] [address] 08/12/2019 12:00:00 AM EDT eCW1 ([facility]) [address] [place] [address] 08/08/2019 12:00:00 AM EDT eCW1 ([facility]) [facility] Resident [address] [place] [phone] 07/29/2019 12:00:00 AM EDT eCW1 ([facility]) [address] [address] 07/07/2019 12:00:00 AM EST eCW1 ([facility]) [address] [address] 07/04/2019 12:00:00 AM EST eCW1 ([facility]) [address] [place] [address] 07/03/2019 12:00:00 AM EST eCW1 ([facility]) [facility] Resident [address] [place] [address] 07/03/2019 12:00:00 AM EST eCW1 ([facility]) [address] [place] [address] 06/26/2019 12:00:00 AM EST eCW1 ([facility]) [address] [place] [address] 06/26/2019 12:00:00 AM EST eCW1 ([facility]) [facility] [address] [facility] [address] 06/24/2019 12:00:00 AM EST eCW1 ([facility]) [facility] [address] [facility] [address] 06/23/2019 12:00:00 AM EST eCW1 ([facility]) [facility] [address] [facility] [address] 06/19/2019 12:00:00 AM EST eCW1 ([facility]) [facility] [address] [place] [address], [place] [address] 06/18/2019 12:00:00 AM EST eCW1 ([facility]) [facility] [address] [facility] [address] 06/17/2019 12:00:00 AM EST eCW1 ([facility]) [facility] Resident [address] [place] [address] 06/14/2019 12:00:00 AM EST eCW1 ([facility]) [facility] [address] [place] [address] Y [address] 06/03/2019 12:00:00 AM EST eCW1 ([facility]) [facility] Resident [address] [place] [address] 05/10/2019 12:00:00 AM EST eCW1 ([facility]) Immunizations Vaccine Date Status Description Data Source(s) influenza, recombinant, quadrIvalent,injectable, prese rvative free 03/04/2020 11:55:00 AM EDT completed eCW1 ([facility]) influenza, recombinant, quadrIvalent,injectable, prese rvative free 03/04/2020 11:55:00 AM EDT completed eCW1 ([facility]) influenza, recombinant, quadrIvalent,injectable, prese rvative free 03/04/2020 11:55:00 AM EDT completed eCW1 ([facility]) influenza, recombinant, quadrIvalent,injectable, prese rvative free 03/04/2020 11:55:00 AM EDT completed eCW1 ([facility]) influenza, recombinant, quadrIvalent,injectable, prese rvative free 03/04/2020 11:55:00 AM EDT completed eCW1 ([facility]) influenza, recombinant, quadrIvalent,injectable, prese rvative free 03/04/2020 11:55:00 AM EDT completed eCW1 ([facility]) influenza, recombinant, quadrIvalent,injectable, prese rvative free 03/04/2020 11:55:00 AM EDT completed eCW1 ([facility]) Medications Medication Brand Name Start Date Product Form Dose Route Admi nistrative Instructions Pharmacy Instructions Status Indications Reaction Description Data Source(s) 2 ML Sodium Hyaluronate 10 MG/ML Prefilled Syringe [Euflexxa ] Euflexxa 05/14/2020 12:00:00 AM EST active MEDENT ([facility] ) Chlorthalidone 25 MG Oral Tablet Chlorthalidone 25 MG 2019 12:00:00 AM EDT 1.0 {tablet} active Chlorthalid one 25 MG eCW1 ([facility]) Chlorthalidone 25 MG Oral Tablet Chlorthalidone 25 MG 2019 12:00:00 AM EDT 1.0 {tablet} active Chlorthalid one 25 MG eCW1 ([facility]) Chlorthalidone 25 MG Oral Tablet Chlorthalidone 25 MG 2019 12:00:00 AM EDT 1.0 {tablet} active Chlorthalid one 25 MG eCW1 ([facility]) Chlorthalidone 25 MG Oral Tablet Chlorthalidone 25 MG 2019 12:00:00 AM EDT 1.0 {tablet} active Chlorthalid one 25 MG eCW1 ([facility]) Diazepam 5 MG Oral Tablet [Valium] Valium 02/06/2020 12:00:00 AM EDT completed MEDENT ([facility]) POLYETHYLENE GLYCOL 3350 142 MG/ML Oral Solution [Miralax] M iralax 01/13/2020 12:00:00 AM EDT active M EDENT ([facility] ) Magnesium Hydroxide 80 MG/ML Oral Suspension Milk Of Magnesi a 01/13/2020 12:00:00 AM EDT ORAL active M EDENT ([facility], ) 2 ML Sodium Hyaluronate 10 MG/ML Prefilled Syringe [Euflexxa ] Euflexxa 09/11/2019 12:00:00 AM EDT active MEDENT ([facility]) Albuterol Sulfate HFA 108 (90 Base) MCG/ACT Albuterol Sulfate HFA 108 (90 Base) MCG/ACT 08/12/2019 12:00:00 AM EDT active 2 puffs eCW1 ([facility]) Albuterol Sulfate HFA 108 (90 Base) MCG/ACT Albuterol Sulfate HFA 108 (90 Base) MCG/ACT 08/12/2019 12:00:00 AM EDT active 2 puffs eCW1 ([facility]) Albuterol Sulfate HFA 108 (90 Base) MCG/ACT Albuterol Sulfate HFA 108 (90 Base) MCG/ACT 08/12/2019 12:00:00 AM EDT 2.0 {puffs} activ e Albuterol Sulfate HFA 108 (90 Base) MCG/ACT eCW1 ([facility]) celecoxib 200 MG Oral Capsule Celecoxib 200 MG Celecoxib 200 MG 08/12/2019 12:00:00 AM EDT active 1 capsul e with food eCW1 ([facility]) Albuterol Sulfate HFA 108 (90 Base) MCG/ACT Albuterol Sulfate HFA 108 (90 Base) MCG/ACT 08/12/2019 12:00:00 AM EDT 2.0 {puffs} activ e Albuterol Sulfate HFA 108 (90 Base) MCG/ACT eCW1 ([facility]) Albuterol Sulfate HFA 108 (90 Base) MCG/ACT Albuterol Sulfate HFA 108 (90 Base) MCG/ACT 08/12/2019 12:00:00 AM EDT active 2 puffs eCW1 ([facility]) Albuterol Sulfate HFA 108 (90 Base) MCG/ACT Albuterol Sulfate HFA 108 (90 Base) MCG/ACT 08/12/2019 12:00:00 AM EDT 2.0 {puffs} activ e Albuterol Sulfate HFA 108 (90 Base) MCG/ACT eCW1 ([facility]) Albuterol Sulfate HFA 108 (90 Base) MCG/ACT Albuterol Sulfate HFA 108 (90 Base) MCG/ACT 08/12/2019 12:00:00 AM EDT 2.0 {puffs} activ e Albuterol Sulfate HFA 108 (90 Base) MCG/ACT eCW1 ([facility]) Albuterol Sulfate HFA 108 (90 Base) MCG/ACT Albuterol Sulfate HFA 108 (90 Base) MCG/ACT 08/12/2019 12:00:00 AM EDT 2.0 {puffs} activ e Albuterol Sulfate HFA 108 (90 Base) MCG/ACT eCW1 ([facility]) Albuterol Sulfate HFA 108 (90 Base) MCG/ACT Albuterol Sulfate HFA 108 (90 Base) MCG/ACT 08/12/2019 12:00:00 AM EDT 2.0 {puffs} activ e Albuterol Sulfate HFA 108 (90 Base) MCG/ACT eCW1 ([facility]) Albuterol Sulfate HFA 108 (90 Base) MCG/ACT Albuterol Sulfate HFA 108 (90 Base) MCG/ACT 08/12/2019 12:00:00 AM EDT 2.0 {puffs} activ e Albuterol Sulfate HFA 108 (90 Base) MCG/ACT eCW1 ([facility]) Albuterol Sulfate HFA 108 (90 Base) MCG/ACT Albuterol Sulfate HFA 108 (90 Base) MCG/ACT 08/12/2019 12:00:00 AM EDT 2.0 {puffs} activ e Albuterol Sulfate HFA 108 (90 Base) MCG/ACT eCW1 ([facility]) Albuterol Sulfate HFA 108 (90 Base) MCG/ACT Albuterol Sulfate HFA 108 (90 Base) MCG/ACT 08/12/2019 12:00:00 AM EDT 2.0 {puffs} activ e Albuterol Sulfate HFA 108 (90 Base) MCG/ACT eCW1 ([facility]) Albuterol Sulfate HFA 108 (90 Base) MCG/ACT Albuterol Sulfate HFA 108 (90 Base) MCG/ACT 08/12/2019 12:00:00 AM EDT 2.0 {puffs} activ e Albuterol Sulfate HFA 108 (90 Base) MCG/ACT eCW1 ([facility]) Chlorthalidone 25 MG Oral Tablet Chlorthalidone 25 MG 2019 12:00:00 AM EST active 1 tablet in the m orning with food eCW1 ([facility]) Chlorthalidone 25 MG Oral Tablet Chlorthalidone 25 MG 2019 12:00:00 AM EST active 1 tablet in the m orning with food eCW1 ([facility]) Chlorthalidone 25 MG Oral Tablet Chlorthalidone 25 MG 2019 12:00:00 AM EST active 1 tablet in the m orning with food eCW1 ([facility]) Chlorthalidone 25 MG Oral Tablet Chlorthalidone 25 MG 2019 12:00:00 AM EST active 1 tablet in the m orning with food eCW1 ([facility]) Prednisone 10 MG Oral Tablet PredniSONE 10 MG PredniSONE 10 MG 06/19/2019 12:00:00 AM EST active 1 tablet eCW1 ([facility]) Prednisone 10 MG Oral Tablet PredniSONE 10 MG PredniSONE 10 MG 06/19/2019 12:00:00 AM EST active 1 tablet eCW1 ([facility]) Insurance Providers Payer name Policy type / Coverage type Policy ID Covered democrat ID Covered democrat's relationship to carlin Policy Carlin Plan Information [facility] [id number] SP [id number] MEDICARE [id number] SP [id number] [id number] FOR LIFE [id number] [facility] [id number] MEDICARE C [id number] S [id number] UMR O [id number] S [id number] 500 FOR LIFE O [id number] P [id number] ANSI-Commercial [id number] ANSI-Medicare Part B [id number] ANSI-Commercial [id number] ANSI-Commercial [id number] [facility]-Medicare Part B [id number] ANSI-Commercial [id number] ANSI-Commercial [id number] ANSI-Commercial [id number] ANSI-Commercial [id number] ANSI-Commercial [id number] ANSI-Commercial [id number] [facility] B [id number] ANSI-Commercial [id number] ANSI-Commercial [id number] ANSI-Commercial [id number] ANSI-Medicare Part B [id number] ANSI-Medicare Part B [id number] ANSI-Commercial [id number] ANSI-Commercial [id number] ANSI-Commercial [id number] ANSI-Commercial [id number] ANSI-Commercial [id number] ANSI-Medicare Part B [id number] ANSI-Commercial [id number] ANSI-Commercial [id number] ANSI-Commercial [id number] ANSI-Commercial [id number] ANSI-Medicare Part B [id number] [employer] Compensation [id number] Self [id number] [employer] Workers Compensation [id number] Self [id number] [employer] (T[employer]) Medigap Part B [id number] [facility] Dep endent [id number] [place] Primary [id number] Self [id number] Umr (pr) Medigap Part B [id number] Self [id number] [employer] Workers Compensation [id number] Self [id number] [employer]) Workers Compensation [id number] Self [id number] [employer] (TFL) [facility] Part B [id number] Family Dep endent [id number] [place] Medicare Primary [id number] Self [id number] [employer] Workers Compensation [id number] Self [id number] [employer] Workers Compensation [id number] Self [id number] [employer] (TFL) [facility] Part B [id number] [facility] Dep endent [id number] [place] Primary [id number] Self [id number] [employer] Workers Compensation [id number] Self [id number] [employer] Workers Compensation [id number] Self [id number] [employer] (TFL) [facility] Part B [id number] [facility] Dep endent [id number] [place] Primary [id number] Self [id number] [employer] Workers Compensation [id number] Self [id number] [employer] Workers Compensation [id number] Self [id number] [employer] (TFL) [facility] Part B [id number] [facility] Dep endent [id number] [place] Medicare Primary [id number] Self [id number] [employer] Workers Compensation [id number] Self [id number] [employer] Workers Compensation [id number] Self [id number] [employer] (TFL) [facility] Part B [id number] [facility] Dep endent [id number] [place] Primary [id number] Self [id number] ANSI-Commercial [id number] ANSI-Medicare Part B [id number] ANSI-Commercial [id number] ANSI-Commercial [id number] 9g05i0f1-g5y4-2pz6-q400-9z8c6595xt36 ANSI-Medicare Part B [id number]-71tg-0l9s-l2r8xf870p0h ANSI-Commercial 4574z7iv-0804-018y-7fb2-5wl7428wh26p 9349e7bg-8123-212t-8yt2-5ic9115ko01q ANSI-Commercial 9r6hvo19-7419-3610-5d23-a99s25n5065l 5p2kre70-2023-7534-3p68-v59e17d9349h ANSI-Commercial 1o6xgt82-bjzo-5y1k-4sy2-907343gq746p 7g1jhv77-istt-7m7h-9lk5-783873ng115b MEDICARE C [id number] S [id number] Y82 ANSI-Commercial a2ubq56n-0fm1-2646-7d62-i63xpm0n02xm n2yzn32n-1sv5-2890-8r59-b04nsw0t43ka ANSI-Medicare Part B [id number]-[id number] x6231b82-2069-0o86-f035-x1aj0rqpkw58 ANSI-Commercial 5nf42y73-x79d-870u-56yv-49on17y02921 3ez93h16-m01o-371c-09fl-17xs54o45544 ANSI-Commercial 3y480025-5ve1-7y79-5ew0-0m784f5j5338 6b345198-8ua8-9z06-2ym6-5p190r5r4635 [employer] [id number] Self [id number] [employer] Workers Compensation [id number]-[id number] [id number] Self [id number]-[id number] [place] [employer] [id number] Self [id number] [employer] (TFL) [facility] Part B [id number] [facility] Dep endent [id number] [place] Primary [id number] Self [id number] [employer]) [employer] Compensation [id number] Self [id number] [employer] ([place]) Workers Compensation [id number] Self [id number] [place] Med[place] B [id number] Self [id number] [place] [employer] (TFL) [facility] Part B [id number] [facility] Dep endent [id number] [place] Primary [id number] Self [id number] UMR O [id number] S [id number] MEDICARE C [id number] S [id number] A [employer] ([place]) Workers Compensation [id number] Self [id number] [employer]) Workers Compensation [id number] Self [id number] [place] (pr) [facility] Part B [id number] Self [id number] [place] [employer] (TFL) [facility] Part B [id number] Family Dep endent [id number] [place] Primary [id number] Self [id number] MEDICARE [id number] SP [id number] A [employer] [id number] SP [id number] [employer] PPO O [id number] S [id number] [employer] [id number] SP [id number] MEDICARE [id number] SP [id number] A [employer]ALTH[employer]/ AD O [id number] P [id number] Health Net Fed Standard Health Maintenance Organization (HMO) [id number] 7 [id number] WPS For Life Medigap Part B [id number] Family Depende nt [id number] [place] Medigap Part B [id number] Self [id number] [place] Medicare Primary [id number] Self [id number] [place] [id number] SP [id number] [employer] [id number] SP [id number] [place] [id number] SP [id number] [employer] U [id number] Self [id number] U [id number] Self [id number] Problems, Conditions, and Diagnoses Code Display Name Description Problem Type Effective Dates Data Source(s) G89.29 34932049 Other chronic pain Problem 12/04/2019 12:00: 00 AM EDT eCW1 ([facility]) H93.13 [id number] Tinnitus of both ears Problem 06/26/2019 12:00:00 AM EST eCW1 ([facility]) H93.13 [id number] Tinnitus of both ears Problem 06/26/2019 12:00:00 AM EST eCW1 ([facility]) Surgeries/Procedures Procedure Description Date Indications Data Source(s) ARTHROCENTESIS ASPIR&/INJECTION MAJOR JT/BURSA 020 12:00:00 AM EST MEDENT ([facility]) Injec Anesthetic Agent/Steroid Trans Epidural Lumb/Sacral Si ngle 05/11/2020 12:00:00 AM EST MEDENT ([facility]) Epidurography Radiological Supervision & Interpretation 05/11/2020 12:00:00 AM EST MEDENT ([facility]) Moderate Sedation Services; Same Phys Intl 15 Mins; PT >= 5 Years 05/11/2020 12:00:00 AM EST MEDENT ([facility] ) Injec Anesthetic Agent/Steroid Trans Epidural Lumb/Sacral Si ngle 05/11/2020 12:00:00 AM EST [facility] Immunization: Flublok Quadrivalent (18 years & older) 0.5mL IM (Influenza) 03/04/2020 12:00:00 AM EDT eC1 ([facility]) ARTHROCENTESIS ASPIR&/INJECTION MAJOR JT/BURSA 12:00:00 AM EDT MEDENT ([facility] ) Ultrasound, Each 15 Min, Constant Attendance 0 12:00:00 AM EDT MEDENT ([facility] ) THERAPEUTIC PX 1/> AREAS EACH 15 MIN EXERCISES 12:00:00 AM EDT MEDENT ([facility] ) Ultrasound, Each 15 Min, Constant Attendance 0 12:00:00 AM EDT MEDENT ([facility] ) THERAPEUTIC PX 1/> AREAS EACH 15 MIN EXERCISES 12:00:00 AM EDT MEDENT ([facility] ) THERAPEUTIC PX 1/> AREAS EACH 15 MIN EXERCISES 12:00:00 AM EDT MEDENT ([facility] ) APPLICATION MODALITY 1/> AREAS HOT/COLD PACKS 10/10/19 12:00:00 AM EDT MEDENT ([facility] ) THERAPEUTIC PX 1/> AREAS EACH 15 MIN EXERCISES 12:00:00 AM EDT MEDENT ([facility] ) ARTHROCENTESIS ASPIR&/INJECTION MAJOR JT/BURSA 12:00:00 AM EDT MEDENT ([facility] ) THERAPEUTIC PX 1/> AREAS EACH 15 MIN EXERCISES 12:00:00 AM EDT MEDENT ([facility] ) THERAPEUTIC PX 1/> AREAS EACH 15 MIN EXERCISES 12:00:00 AM EDT MEDENT ([facility] Office Visit, Est Pt., Level 2 FC 09/27/2019 12:00:00 AM EDT eCW1 ([facility]) Office Visit, Est Pt., Level 4 PC 09/27/2019 12:00:00 AM EDT eCW1 ([facility]) OSTEOPATH MANJ 5-6 REGIONS 09/27/2019 12:00:00 AM EDT eCW1 ([facility]) ARTHROCENTESIS ASPIR&/INJECTION MAJOR JT/BURSA 12:00:00 AM EDT MEDENT ([facility]) Ultrasound, Each 15 Min, Constant Attendance 0 12:00:00 AM EDT MEDENT ([facility]) THERAPEUTIC PX 1/> AREAS EACH 15 MIN EXERCISES 12:00:00 AM EDT MEDENT ([facility]) Ultrasound, Each 15 Min, Constant Attendance 0 12:00:00 AM EDT MEDENT ([facility]) THERAPEUTIC PX 1/> AREAS EACH 15 MIN EXERCISES 12:00:00 AM EDT MEDENT ([facility]) THERAPEUTIC PX 1/> AREAS EACH 15 MIN EXERCISES 12:00:00 AM EDT MEDENT ([facility]) ARTHROCENTESIS ASPIR&/INJECTION MAJOR JT/BURSA 12:00:00 AM EDT MEDENT ([facility]) Physical Therapy Eval - Low Complexity 09/16/2019 12:0 0:00 AM EDT MEDENT ([facility]) ARTHROCENTESIS ASPIR&/INJECTION MAJOR JT/BURSA 12:00:00 AM EDT MEDENT ([facility]) ARTHROCENTESIS ASPIR&/INJECTION MAJOR JT/BURSA 12:00:00 AM EDT MEDENT ([facility]) RADEX SHOULDER COMPLETE MINIMUM 2 VIEWS 08/22/2019 12: 00:00 AM EDT MEDENT ([facility]) X-Ray Hip Unilateral With Pelvis 2-3 Views 08/22/2019 12:00:00 AM EDT MEDENT ([facility]) RADIOLOGIC EXAM KNEE COMPLETE 4/MORE VIEWS 08/22/2019 12:00:00 AM EDT [facility] Office Visit, Est Pt., Level 3 PC 06/26/2019 12:00:00 AM EST eCW1 ([facility]) OSTEOPATH MANJ 3-4 REGIONS 05/09/2019 12:00:00 AM EST eCW1 ([facility]) Results ID Date Data Source [id number] 05/24/2020 09:00:00 AM EST [facility] Name Value Range Interpretation Code Description Data Janette rce(s) Supporting Document(s) SARS coronavirus 2 RNA Not Detected [facility] [place] This lab was ordered by [facility] and reported by [facility]. ID Date Data Source [id number] 05/06/2020 10:00:00 AM EST MEDENT ([facility]) Name Value Range Interpretation Code Description Data Janette rce(s) Supporting Document(s) Coronavirus 2019 Nasopharygeal Laboratory test result MEDENT ([facility]) This nucleic acid amplification test was developed and its performance characteristics determined by [facility] Nucleic acid amplification tests include PCR and [...] detected) result in this assay. Performed at: [facility] [address] [facility] [facility], [place], [place] [id number] [employer] Inspector: Khushbu Teran PhD, Phone: [phone] Not Detected ID Date Data Source [id number] 05/06/2020 10:00:00 AM EST [facility] Name Value Range Interpretation Code Description Data Janette rce(s) Supporting Document(s) SARS coronavirus 2 RNA [facility] This lab was ordered by [facility] and reported by [facility]. ID Date Data Source [id number] 03/25/2020 10:57:00 AM EST MEDENT ([facility]) Name Value Range Interpretation Code Description Data Janette rce(s) Supporting Document(s) Prothrombin time (PT) 29.7 s 24.2-38.5 MED ENT ([facility]) Platelets [#/volume] in Blood by Automated count 285 10 150-450 MEDENT ([facility]) ID Date Data Source [id number] 03/25/2020 10:57:00 AM EST MEDENT ([facility]) Name Value Range Interpretation Code Description Data Janette rce(s) Supporting Document(s) Prothrombin Time 12.7 s 12.5-14.3 MEDENT ([facility]) Inr 0.93 MEDENT ([facility]) THERAPUTIC HUMAN INR VALUES INDICATIONS NORMAL RANGES PROPHYLAXIS/TREATMENT OF: VENOUS THROMBOSIS 2.0-3.0 PULMONARY EMBOLISM 2.0-3.0 PREVENTION OF SYSTEMIC EMBOLISM FROM: TISSUE HEART VALVES 2.0-3.0 ACUTE MYOCARDIAL INFARCTION 2.0-3.0 VALVULAR HEART DISEASE 2.0-3.0 ATRIAL FIBRILLATION 2.0-3.0 MECHANICAL VALVES(HIGH RISK) 2.5-3.5 RECURRENT MYOCARDIAL INFARCTION 2.5-3.5 ID Date Data Source [id number] 02/20/2020 12:00:00 AM EDT [facility] Alfa Maher MD Patient Name: CHARLOTTE ROYAL [facility] Date of : [address] [facility] Date of Exam: 02/20/2020LILIANA Mckenzie [id number]#: Fax: [phone] EXAM: MRI LUMBAR SPINE WITHOUT CONTRASTPROCEDURE INFORMATION:Exam: MR Lumbar Spine Without Contrast.Exam date and time: 02/20/2020 10:40 AM Age: 69 years oldClinical indication: Low back pain; Patient HX: Lbp and intermittent bilatleg painTECHNIQUE: Imaging protocol: Multiplanar magnetic resonance images of thelumbar spine without intravenous contrast.COMPARISON: No relevant prior studies available.FINDINGS:Vertebrae: There is no fracture. Vertebral bodies maintain their height andalignment. Stir images demonstrate no evidence of bone marrow edema ormarrow infiltrating lesion.Spinal cord: The lower thoracic spinal cord, conus and cauda equina arenormal.L1-L2: There is disc space narrowing. There is a small Schmorl's node.There is a small ventral osteophyte and disc bulge. There is no significantposterior disc bulge. There is mild facet hypertrophy. There is no centralor foraminal stenosis.L2-L3: Minimal disc bulge. Mild facet hypertrophy. No central or foraminalstenosis.L3-L4: There is disc space narrowing more severe to the right of midline.There is a mild disc bulge, spondylosis and facet arthropathy. There is nocentral stenosis. There is mild right foraminal stenosis.L4-L5: Mild disc space narrowing and mild disc bulge, asymmetric to theleft. There is mild right foraminal stenosis. There is moderate to severeleft foraminal stenosis .L5-S1: There is no disc bulge. There is facet hypertrophy. There is nocentral or foraminal stenosis. Soft tissues: There is no paraspinous orintraspinal mass, hemorrhage or fluid collection.IMPRESSION:1. No acute findings.2. Disc disease and degenerative findings with foraminal stenosis which ismost severe on the left at L4-L5 as described above. No central spinalstenosisThank you for allowing us to participate in the care of your patient.Dictated and Authenticated by: Edmund Spence MD 02/20/2020 4:02 PMEastern Time ([place] & [place])HaleyV/Luis you for referring CHARLOTTE ROYAL to our office. Electronically Signed - HALEY 02/21/20 10:04 Name Value Range Interpretation Code Description Data Janette rce(s) Supporting Document(s) ID Date Data Source URIC ACID 08/12/2019 12:00:00 AM EDT [facility] Name Value Range Interpretation Code Description Data Janette rce(s) Supporting Document(s) 7.1 2.6-6.0 URIC ACID eCW1 ([facility]) ID Date Data Source ERYTHROCYTE SEDIMENTATION RATE 08/12/2019 12:00:00 AM EDT eC W1 ([facility]) Name Value Range Interpretation Code Description Data Janette rce(s) Supporting Document(s) 8 0-30 ERYTHROCYTE SEDIMENTATION RATE eCW1 ([facility]) ID Date Data Source C REACTIVE PROTEIN QUANTITATIV (At [facility]) 08/12/2019 12:00 :00 AM EDT eCW1 ([facility]) Name Value Range Interpretation Code Description Data Janette rce(s) Supporting Document(s) 0.34 0.00-0.30 C REACTIVE PROTEIN QUANTI TATIV eCW1 ([facility]) ID Date Data Source Comprehensive Metabolic Profile (CMP) 08/12/2019 12:00:00 AM EDT eCW1 ([facility]) Name Value Range Interpretation Code Description Data Janette rce(s) Supporting Document(s) 95 70-100 GLUCOSE, FASTING [facility]CW[facility]) 19 7-18 BLOOD UREA NITROGEN eCW1 ([facility]) > 60.0 >45 GLOMERULAR FILTRATION RATE eCW 1 ([facility]) 0.97 0.55-1.30 CREATININE FOR GFR eCW1 ([facility]) 134 136-145 SODIUM LEVEL eCW1 ([facility]) 9.4 8.8-10.2 CALCIUM LEVEL eCW1 ([facility]) 28 21-32 CARBON DIOXIDE LEVEL eCW1 ([facility]) 4.1 3.5-5.1 POTASSIUM SERUM eCW1 ([facility]) 99 98-107 CHLORIDE LEVEL eCW1 ([facility]) 34 12-78 ALT/SGPT eCW1 ([facility]) 100 45-117 ALKALINE PHOSPHATASE eCW1 ([facility]) 35 7-37 AST/SGOT eCW1 ([facility]) 1.26 1.00-1.93 ALBUMIN/GLOBULIN RATIO eCW1 ([facility]) 7.7 6.4-8.2 TOTAL PROTEIN eCW1 ([facility]) 4.3 3.2-5.2 ALBUMIN eCW1 ([facility]) 0.6 0.2-1.0 BILIRUBIN,TOTAL eCW1 ([facility]) Procedure Vital Signs ID Date Data Source UNK Name Value Range Interpretation Code Description Data Source(s) Diastolic blood pressure 98 mm[Hg] 98 mm[Hg] eCW1 ([facility]) Systolic blood pressure 156 mm[Hg] 156 mm[Hg] e CW1 ([facility]) Body temperature 98.7 [degF] 98.7 [degF] eCW1 ( [facility]) Respiratory rate 18 /min 18 /min eCW1 ([facility]) Heart rate 116 /min 116 /min eCW1 ([facility]) Body mass index (BMI) [Ratio] 29.88 kg/m2 29.88 kg/m2 eCW1 ([facility]) Body height 64.2 [in_i] 64.2 [in_i] eCW1 ([facility]) Body weight 175.2 [lb_av] 175.2 [lb_av] eCW1 ([facility]) Body weight 79.834 kg 79.834 kg MEDENT ([facility], ) Body mass index (BMI) [Ratio] 30.2 kg/m2 30.2 k g/m2 MEDENT ([facility], ) Body weight 176.00 [lb_av] 176.00 [lb_av] MEDEN T ([facility], ) Body height 64 [in_i] 64 [in_i] MEDENT ([facility], ) 5'4" Diastolic blood pressure 98 mm[Hg] 98 mm[Hg] MEDENT ([facility], ) Systolic blood pressure 158 mm[Hg] 158 mm[Hg] M EDENT ([facility], ) Diastolic blood pressure 80 mm[Hg] 80 mm[Hg] eCW1 ([facility]) Systolic blood pressure 140 mm[Hg] 140 mm[Hg] e CW1 ([facility]) Body temperature 98.1 [degF] 98.1 [degF] eCW1 ( [facility]) Respiratory rate 18 /min 18 /min eCW1 ([facility]) Heart rate 80 /min 80 /min eCW1 ([facility]) Body mass index (BMI) [Ratio] 30.53 kg/m2 30.53 kg/m2 eCW1 ([facility]) Body height 64.2 [in_us] 64.2 [in_us] eCW1 ([facility]) Body weight Measured 179 [lb_av] 179 [lb_av] eC W1 ([facility]) Body weight Measured 177 [lb_av] 177 [lb_av] eC W1 ([facility]) Diastolic blood pressure 88 mm[Hg] 88 mm[Hg] eCW1 ([facility]) Systolic blood pressure 142 mm[Hg] 142 mm[Hg] e CW1 ([facility]) Body temperature 98.7 [degF] 98.7 [degF] eCW1 ( [facility]) Respiratory rate 18 /min 18 /min eCW1 ([facility]) Heart rate 100 /min 100 /min eCW1 ([facility]) Body mass index (BMI) [Ratio] 30.19 kg/m2 30.19 kg/m2 eCW1 ([facility]) Body height 64.2 [in_us] 64.2 [in_us] eCW1 ([facility]) Body mass index (BMI) [Ratio] 30.0 kg/m2 30.0 k g/m2 MEDENT ([facility] ) Body weight 175.00 [lb_av] 175.00 [lb_av] MEDEN T ([facility] ) Body height 64 [in_i] 64 [in_i] MEDENT ([facility]) 5'4" Diastolic blood pressure 94 mm[Hg] 94 mm[Hg] eCW1 ([facility]) Systolic blood pressure 138 mm[Hg] 138 mm[Hg] e CW1 ([facility]) Body temperature 97.7 [degF] 97.7 [degF] eCW1 ( [facility]) Respiratory rate 18 /min 18 /min eCW1 ([facility]) Heart rate 116 /min 116 /min eCW1 ([facility]) Body mass index (BMI) [Ratio] 29.85 kg/m2 29.85 kg/m2 eCW1 ([facility]) Body height 64.2 [in_us] 64.2 [in_us] eCW1 ([facility]) Body weight Measured 175.0 [lb_av] 175.0 [lb_av ] eCW1 ([facility]) Diastolic blood pressure 70 mm[Hg] 70 mm[Hg] eCW1 ([facility]) Systolic blood pressure 142 mm[Hg] 142 mm[Hg] e CW1 ([facility]) Body temperature 98.6 [degF] 98.6 [degF] eCW1 ( [facility]) Respiratory rate 18 /min 18 /min eCW1 ([facility]) Heart rate 122 /min 122 /min eCW1 ([facility]) Body mass index (BMI) [Ratio] 29.68 kg/m2 29.68 kg/m2 eCW1 ([facility]) Body height 64.2 [in_us] 64.2 [in_us] eCW1 ([facility]) Body weight Measured 174 [lb_av] 174 [lb_av] eC W1 ([facility]) Diastolic blood pressure 98 mm[Hg] 98 mm[Hg] eCW1 ([facility]) Systolic blood pressure 172 mm[Hg] 172 mm[Hg] e CW1 ([facility]) Body temperature 97.7 [degF] 97.7 [degF] eCW1 ( [facility]) Respiratory rate 20 /min 20 /min eCW1 ([facility]) Heart rate 104 /min 104 /min eCW1 ([facility]) Body mass index (BMI) [Ratio] 29.85 kg/m2 29.85 kg/m2 eCW1 ([facility]) Body height 64.2 [in_us] 64.2 [in_us] eCW1 ([facility]) Body weight Measured 175.0 [lb_av] 175.0 [lb_av ] eCW1 ([facility]) Diastolic blood pressure 82 mm[Hg] 82 mm[Hg] eCW1 ([facility]) Systolic blood pressure 142 mm[Hg] 142 mm[Hg] e CW1 ([facility]) Body temperature 98.0 [degF] 98.0 [degF] eCW1 ( [facility]) Respiratory rate 20 /min 20 /min eCW1 ([facility]) Heart rate 80 /min 80 /min eCW1 ([facility]) Body mass index (BMI) [Ratio] 29.99 kg/m2 29.99 kg/m2 eCW1 ([facility]) Body height 64.2 [in_us] 64.2 [in_us] eCW1 ([facility]) Body weight Measured 175.8 [lb_av] 175.8 [lb_av ] eCW1 ([facility]) Diastolic blood pressure 92 mm[Hg] 92 mm[Hg] eCW1 ([facility]) Systolic blood pressure 142 mm[Hg] 142 mm[Hg] e CW1 ([facility]) Body temperature 98.4 [degF] 98.4 [degF] eCW1 ( [facility]) Respiratory rate 20 /min 20 /min eCW1 ([facility]) Heart rate /min eCW1 ([facility]) Body mass index (BMI) [Ratio] 29.85 kg/m2 29.85 kg/m2 eCW1 ([facility]) Body height 64.2 [in_us] 64.2 [in_us] eCW1 ([facility]) Body weight Measured 175 [lb_av] 175 [lb_av] eC W1 ([facility]) Diastolic blood pressure 80 mm[Hg] 80 mm[Hg] eCW1 ([facility]) Systolic blood pressure 132 mm[Hg] 132 mm[Hg] e CW1 ([facility]) Body temperature 98.4 [degF] 98.4 [degF] eCW1 ( [facility]) Respiratory rate 20 /min 20 /min eCW1 ([facility]) Heart rate 116 /min 116 /min eCW1 ([facility]) Body mass index (BMI) [Ratio] 29.51 kg/m2 29.51 kg/m2 eCW1 ([facility]) Body height 64.2 [in_us] 64.2 [in_us] eCW1 ([facility]) Body weight Measured 173 [lb_av] 173 [lb_av] eC W1 ([facility]) Patient Treatment Plan of Care Planned Activity Planned Date Details Description Data Source (s) Chlorthalidone 25 MG Oral Tablet 03/08/2020 12:00:00 AM EDT eCW1 ([facility]) Chlorthalidone 25 MG Oral Tablet 03/08/2020 12:00:00 AM EDT eCW1 ([facility]) Chlorthalidone 25 MG Oral Tablet 03/08/2020 12:00:00 AM EDT eCW1 ([facility]) Chlorthalidone 25 MG Oral Tablet 03/08/2020 12:00:00 AM EDT eCW1 ([facility]) Albuterol Sulfate HFA 108 (90 Base) MCG/ACT 08/12/2019 12:00:00 AM EDT eCW1 ([facility]) celecoxib 200 MG Oral Capsule 08/12/2019 12:00:00 AM EDT eCW1 ([facility]) Chlorthalidone 25 MG Oral Tablet 06/26/2019 12:00:00 AM EST eCW1 ([facility]) Chlorthalidone 25 MG Oral Tablet 06/26/2019 12:00:00 AM EST eCW1 ([facility]) Prednisone 10 MG Oral Tablet 06/19/2019 12:00:00 AM EST eCW1 ([facility])
[2020-05-29] MEDS ORDERED: propofoL 200 MG/20 ML VIAL As Ordered ONE (11:00)
[2020-05-29] MEDS ORDERED: LIDOCAINE 2% 100MG/5ML SDV (FOR ANES.) As Ordered ONE (11:00)
--- NOTE | 2020-05-29 12:07 | ROOR ---
Patient Name: Tiki Royal Procedure Date: 05/29/2020 11:26 AM Date of : 1950 Age: 69 Room: [facility] Gender: Female Note Status: Finalized Procedure: Colonoscopy Indications: High risk colon cancer surveillance: Personal history of colonic polyps, Last colonoscopy: December 2016 Providers: Alfa WALKER MD Referring MD: Adolph Escobar MD Requesting Provider: Medicines: Monitored Anesthesia Care Complications: No immediate complications. Procedure: Pre-Anesthesia Assessment: - The heart rate, respiratory rate, oxygen saturations, blood pressure, adequacy of pulmonary ventilation, and response to care were monitored throughout the procedure. The Colonoscope was introduced through the anus and advanced to the terminal ileum, with identification of the appendiceal orifice and IC valve. The colonoscopy was performed without difficulty. The patient tolerated the procedure well. The quality of the bowel preparation was good. Findings: The perianal and digital rectal examinations were normal. Two sessile polyps were found in the sigmoid colon and splenic flexure. The polyps were diminutive in size. These polyps were removed with a cold snare. Resection and retrieval were complete. Mild sigmoid diverticulosis and small internal hemorrhoids. The exam was otherwise without abnormality on direct and retroflexion views. Impression: - Two diminutive polyps in the sigmoid colon and at the splenic flexure, removed with a cold snare. Resected and retrieved. - Mild sigmoid diverticulosis and small internal hemorrhoids. - The examination was otherwise normal on direct and retroflexion views. Recommendation: - Repeat colonoscopy in 5 years for surveillance. Procedure Code(s): --- Professional --- 78708, Colonoscopy, flexible; with removal of tumor(s), polyp(s), or other lesion(s) by snare technique Diagnosis Code(s): --- Professional --- K63.5, Polyp of colon Z86.010, Personal history of colonic polyps CPT copyright 2019 [employer]. All rights reserved. The codes documented in this report are preliminary and upon shake backboard notcher review may be revised to meet current compliance requirements. Alfa Walker MD Alfa WALKER MD 05/29/2020 12:06:41 PM Electronically signed by Alfa WALKER MD Number of Addenda: 0 Note Initiated On: 05/29/2020 11:26 AM Estimated Blood Loss: Estimated blood loss: none.
[2020-05-29 12:31] VITALS: BP 161/72
== END 2020-05-29 12:32 | disposition home or self-care (01) ==
LOC: M OPP 10:07
PROVIDERS: ATTEND Internal Medicine Gastroenterology
DX: Z12.11 Encounter for screening for malignant neoplasm of colon (principal); Z86.010 Personal history of colon polyps; K57.30 Diverticulosis of large intestine without perforation or abscess without bleeding; K64.8 Other hemorrhoids; R12 Heartburn; E55.9 Vitamin D deficiency, unspecified; H04.123 Dry eye syndrome of bilateral lacrimal glands; E78.5 Hyperlipidemia, unspecified; Z88.8 Allergy status to other drugs, medicaments and biological substances; Z79.899 Other long term (current) drug therapy; Z83.3 Family history of diabetes mellitus; Z80.3 Family history of malignant neoplasm of breast; Z80.41 Family history of malignant neoplasm of ovary; Z80.0 Family history of malignant neoplasm of digestive organs

== ENCOUNTER → 2021-02-24 | Outpatient (CLI) | payer MEDICARE, OTHER ==
[~2021-02-24] MED LIST changes: -NS 1,000 ML IV ONE
[2021-02-24 10:54] LABS: BASO % 0.5 % (0.0-1.0); EOS # 0.1 10^3/uL (0.0-0.5); EOS % 1.9 % (0.0-3.0); HEMOGLOBIN 14.2 g/dl (12.0-15.5); LYMPH # 1.6 10^3/uL (1.5-5.0); LYMPH % 24.8 % (24.0-44.0); MEAN CORPUSCULAR HEMOGLOBIN 32.6 pg (27.0-33.0); MEAN CORPUSCULAR VOLUME 98.6 fl (80.0-96.0); MONO # 0.5 10^3/uL (0.0-0.8); MONO % 8.1 % (2.0-8.0); NEUTROPHILS # 4.2 10^3/uL (1.5-8.5); NEUTROPHILS % 64.4 % (36.0-66.0); PLATELET COUNT, AUTOMATED 292 10^3/uL (150-450); RED BLOOD COUNT 4.36 10^6/uL (4.00-5.40); WHITE BLOOD COUNT 6.5 10^3/uL (4.0-10.0)
[2021-02-24 11:27] LABS: ALBUMIN 3.6 GM/DL (3.2-5.2); ALT/SGPT 26 U/L (12-78); BILIRUBIN,TOTAL 1.1 MG/DL (0.2-1.0); BLOOD UREA NITROGEN 19 MG/DL (7-18); CALCIUM LEVEL 9.2 MG/DL (8.8-10.2); CARBON DIOXIDE LEVEL 31 MEQ/L (21-32); CHLORIDE LEVEL 106 MEQ/L (98-107); CHOLESTEROL LEVEL 202 MG/DL (<200); CHOLESTEROL RISK RATIO 2.589 (<5); CREATININE FOR GFR 0.82 MG/DL (0.55-1.30); GLOMERULAR FILTRATION RATE > 60.0 (>45); GLUCOSE, FASTING 88 MG/DL (70-100); HDL CHOLESTEROL 78 MG/DL (>40); LDL CHOLESTEROL 108 MG/DL (<100); MAGNESIUM LEVEL 2.2 MG/DL (1.8-2.4); NON-HDL-C 124 MG/DL; POTASSIUM SERUM 4.4 MEQ/L (3.5-5.1); SODIUM LEVEL 141 MEQ/L (136-145); TRIGLYCERIDES LEVEL 78 MG/DL (<150)
== END ==
LOC: M LAB 07:25
PROVIDERS: ATTEND Internal Medicine
DX: I10 Essential (primary) hypertension (principal); E78.5 Hyperlipidemia, unspecified; Z86.010 Personal history of colon polyps

== ENCOUNTER → 2021-03-08 | Outpatient (CLI) | payer MEDICARE, OTHER ==
--- NOTE | 2021-03-08 15:13 | REP ---
INDICATION: OTHER CHEST PAIN. COMPARISON: None. TECHNIQUE: Four views left ribs FINDINGS: There is no acute fracture or destructive osseous lesion. IMPRESSION: Within normal limits <Electronically signed by Lucio Vanegas > 03/08/21 [id number]
--- NOTE | 2021-03-08 15:13 | REP ---
INDICATION: OTHER CHEST PAIN. COMPARISON: None. TECHNIQUE: PA and lateral FINDINGS: The superior mediastinal structures are midline. The cardiac silhouette is unremarkable in size, shape, and position. The diaphragmatic surfaces of the lungs are regular, and the costophrenic angles are clear. The pulmonary tomlinson are clear. The imaged osseous structures are intact. IMPRESSION: There is no acute cardiopulmonary disease. <Electronically signed by Lucio Vanegas > 03/08/21 [id number]
== END ==
LOC: M PLAIMG 13:00
PROVIDERS: ATTEND Internal Medicine
DX: R07.89 Other chest pain (principal); Z23 Encounter for immunization
CPT/HCPCS: 71046; 71100; 90682; G0008; G0463

== ENCOUNTER → 2021-08-31 | Outpatient (CLI) | payer MEDICARE, OTHER ==
[2021-08-31 11:16] LABS: ALBUMIN 3.9 GM/DL (3.2-5.2); ALT/SGPT 30 U/L (12-78); BILIRUBIN,TOTAL 0.9 MG/DL (0.2-1.0); BLOOD UREA NITROGEN 19 MG/DL (7-18); CALCIUM LEVEL 9.2 MG/DL (8.8-10.2); CARBON DIOXIDE LEVEL 30 MEQ/L (21-32); CHLORIDE LEVEL 105 MEQ/L (98-107); CHOLESTEROL LEVEL 178 MG/DL (<200); CHOLESTEROL RISK RATIO 2.144 (<5); CREATININE FOR GFR 0.88 MG/DL (0.55-1.30); GLOMERULAR FILTRATION RATE > 60.0 (>45); GLUCOSE, FASTING 88 MG/DL (70-100); HDL CHOLESTEROL 83 MG/DL (>40); LDL CHOLESTEROL 71 MG/DL (<100); NON-HDL-C 95 MG/DL; POTASSIUM SERUM 4.5 MEQ/L (3.5-5.1); SODIUM LEVEL 139 MEQ/L (136-145); TRIGLYCERIDES LEVEL 118 MG/DL (<150)
== END ==
LOC: M PLALAB 06:35
PROVIDERS: ATTEND Internal Medicine
DX: I10 Essential (primary) hypertension (principal)

== ENCOUNTER → 2021-09-07 | Outpatient (REF) | payer MEDICARE, OTHER | LOC: M SFHCPLAZ 17:35 | PROVIDERS: ATTEND Nurse Practitioner Adult Health | DX: Z12.4 Encounter for screening for malignant neoplasm of cervix (principal) ==

== ENCOUNTER → 2021-10-14 | Outpatient (CLI) | payer MEDICARE, OTHER | LOC: M WHC 12:57 | PROVIDERS: ATTEND Internal Medicine | DX: Z12.31 Encounter for screening mammogram for malignant neoplasm of breast (principal); M85.89 Other specified disorders of bone density and structure, multiple sites; Z80.3 Family history of malignant neoplasm of breast; Z85.828 Personal history of other malignant neoplasm of skin ==

== ENCOUNTER → 2022-03-01 | Outpatient (CLI) | payer MEDICARE, OTHER ==
[2022-03-01 11:33] LABS: HEMATOCRIT 43.4 % (36.0-47.0); HEMOGLOBIN 14.3 g/dl (12.0-15.5); MEAN CORPUSCULAR HEMOGLOBIN 32.6 pg (27.0-33.0); MEAN CORPUSCULAR HGB CONC 32.9 g/dl (32.0-36.5); MEAN CORPUSCULAR VOLUME 99.1 fl (80.0-96.0); PLATELET COUNT, AUTOMATED 292 10^3/uL (150-450); RED BLOOD COUNT 4.38 10^6/uL (4.00-5.40); WHITE BLOOD COUNT 5.4 10^3/uL (4.0-10.0)
[2022-03-01 12:25] LABS: ALBUMIN 3.7 GM/DL (3.2-5.2); ALT/SGPT 29 U/L (12-78); BILIRUBIN,TOTAL 1.1 MG/DL (0.2-1.0); BLOOD UREA NITROGEN 19 MG/DL (7-18); CALCIUM LEVEL 8.9 MG/DL (8.8-10.2); CARBON DIOXIDE LEVEL 28 MEQ/L (21-32); CHLORIDE LEVEL 106 MEQ/L (98-107); CREATININE FOR GFR 0.87 MG/DL (0.55-1.30); FREE T4 0.94 NG/DL (0.76-1.46); GLOMERULAR FILTRATION RATE > 60.0 (>39); GLUCOSE, FASTING 94 MG/DL (70-100); POTASSIUM SERUM 4.6 MEQ/L (3.5-5.1); SODIUM LEVEL 139 MEQ/L (136-145); TOTAL PROTEIN 6.9 GM/DL (6.4-8.2)
[2022-03-01 12:28] LABS: MALB URINE SIEMENS 37.2 MG/L; MAU/CREAT RATIO 13.9 MCG/MG (0.0-30.0)
[2022-03-01 12:55] LABS: TOTAL 25(OH) VITAMIN D 60.9 NG/ML (30.0-100.0); VITAMIN B12 LEVEL 457 PG/ML (247-911)
[2022-03-01 12:58] LABS: HEMOGLOBIN A1c 5.3 %
== END ==
LOC: M PLALAB 07:01
PROVIDERS: ATTEND Internal Medicine Hematology
DX: I10 Essential (primary) hypertension (principal); E55.9 Vitamin D deficiency, unspecified

== ENCOUNTER → 2022-10-17 | Outpatient (CLI) | payer MEDICARE, OTHER ==
[~2022-10-17] MED LIST changes: -PHILCAP4 PO; +PHILLIPS COLON1 CAP PO
== END ==
LOC: M WHC 10:13
PROVIDERS: ATTEND Internal Medicine Hematology
DX: Z12.31 Encounter for screening mammogram for malignant neoplasm of breast (principal)

== ENCOUNTER → 2022-11-02 | Outpatient (REF) | payer MEDICARE, OTHER | LOC: M SFHCWAGY 17:15 | PROVIDERS: ATTEND Nurse Practitioner Adult Health | DX: Z12.4 Encounter for screening for malignant neoplasm of cervix (principal); N95.2 Postmenopausal atrophic vaginitis ==

== ENCOUNTER → 2022-11-22 | Outpatient (CLI) | payer MEDICARE, OTHER | LOC: M WHC 07:10 | PROVIDERS: ATTEND Nurse Practitioner Adult Health | DX: R14.0 Abdominal distension (gaseous) (principal) ==

== ENCOUNTER → 2023-03-08 | Outpatient (CLI) | payer MEDICARE, OTHER ==
[2023-03-08 12:29] LABS: HEMATOCRIT 41.1 % (36.0-47.0); HEMOGLOBIN 13.7 g/dl (12.0-15.5); MEAN CORPUSCULAR HEMOGLOBIN 32.9 pg (27.0-33.0); MEAN CORPUSCULAR HGB CONC 33.3 g/dl (32.0-36.5); MEAN CORPUSCULAR VOLUME 98.6 fl (80.0-96.0); PLATELET COUNT, AUTOMATED 283 10^3/uL (150-450); RED BLOOD COUNT 4.17 10^6/uL (4.00-5.40); WHITE BLOOD COUNT 13.2 10^3/uL (4.0-10.0)
[2023-03-08 12:33] LABS: ALBUMIN 3.8 G/DL (3.2-5.2); ALKALINE PHOSPHATASE 89 U/L (46-116); ALT/SGPT 33 U/L (7.0-40); AST/SGOT 27 U/L (<34); BILIRUBIN,TOTAL 0.8 MG/DL (0.3-1.2); BLOOD UREA NITROGEN 23 MG/DL (9-23); CALCIUM LEVEL 9.2 MG/DL (8.3-10.6); CARBON DIOXIDE LEVEL 28 MMOL/L (20-31); CHLORIDE LEVEL 105 MMOL/L (98-107); CHOLESTEROL LEVEL 183 MG/DL (<200); CHOLESTEROL RISK RATIO 2.36 (<5); CREATININE FOR GFR 0.78 MG/DL (0.55-1.30); GLOMERULAR FILTRATION RATE > 60.0 (>39); GLUCOSE, FASTING 83 MG/DL (74-106); HDL CHOLESTEROL 77.5 MG/DL (>40); LDL CHOLESTEROL 82.3 MG/DL (<100); NON-HDL-C 105.5 MG/DL; POTASSIUM SERUM 4.7 MMOL/L (3.5-5.1); SODIUM LEVEL 140 MMOL/L (136-145); TOTAL PROTEIN 6.8 G/DL (5.7-8.2); TRIGLYCERIDES LEVEL 116 MG/DL (<150)
[2023-03-08 12:34] LABS: FREE T4 0.84 NG/DL (0.89-1.76); THYROID STIMULATING HORMONE 6.205 uIU/ML (0.55-4.78)
[2023-03-08 12:35] LABS: TOTAL 25(OH) VITAMIN D 49.7 NG/ML (20.0-100.0); VITAMIN B12 LEVEL 467 PG/ML (211-911)
[2023-03-08 12:36] LABS: C REACTIVE PROTEIN QUANTITATIV < 0.40 MG/DL (<1.0)
[2023-03-08 12:48] LABS: HEMOGLOBIN A1c 4.8 % (4.0-6.0)
[2023-03-08 12:57] LABS: CREATININE, URINE 120.8 MG/DL; MAU/CREAT RATIO 7.4 MCG/MG (0.0-30.0)
== END ==
LOC: M PLALAB 07:07
PROVIDERS: ATTEND Internal Medicine Hematology
DX: E78.2 Mixed hyperlipidemia (principal); E55.9 Vitamin D deficiency, unspecified; I10 Essential (primary) hypertension; M25.512 Pain in left shoulder; M85.851 Other specified disorders of bone density and structure, right thigh; M85.852 Other specified disorders of bone density and structure, left thigh; K21.9 Gastro-esophageal reflux disease without esophagitis

== ENCOUNTER → 2023-09-21 | Outpatient (CLI) | payer MEDICARE, OTHER ==
[2023-09-21 14:41] LABS: C REACTIVE PROTEIN QUANTITATIV < 0.40 MG/DL (<1.0)
[2023-09-21 14:43] LABS: ALBUMIN 3.8 G/DL (3.2-5.2); ALKALINE PHOSPHATASE 91 U/L (46-116); ALT/SGPT 38 U/L (7.0-40); AST/SGOT 34 U/L (<34); BILIRUBIN,TOTAL 1.1 MG/DL (0.3-1.2); BLOOD UREA NITROGEN 21 MG/DL (9-23); CALCIUM LEVEL 9.3 MG/DL (8.3-10.6); CARBON DIOXIDE LEVEL 30 MMOL/L (20-31); CHLORIDE LEVEL 104 MMOL/L (98-107); CHOLESTEROL LEVEL 185 MG/DL (<200); CHOLESTEROL RISK RATIO 2.73 (<5); CREATININE FOR GFR 0.79 MG/DL (0.55-1.30); GLOMERULAR FILTRATION RATE > 60.0 (>39); GLUCOSE, FASTING 97 MG/DL (74-106); HDL CHOLESTEROL 67.6 MG/DL (>40); HEMATOCRIT 42.7 % (36.0-47.0); HEMOGLOBIN 14.6 g/dl (12.0-15.5); MEAN CORPUSCULAR HEMOGLOBIN 33.3 pg (27.0-33.0); MEAN CORPUSCULAR HGB CONC 34.2 g/dl (32.0-36.5); MEAN CORPUSCULAR VOLUME 97.3 fl (80.0-96.0); NON-HDL-C 117.4 MG/DL; PLATELET COUNT, AUTOMATED 267 10^3/uL (150-450); POTASSIUM SERUM 4.9 MMOL/L (3.5-5.1); RED BLOOD COUNT 4.39 10^6/uL (4.00-5.40); SODIUM LEVEL 138 MMOL/L (136-145); TOTAL PROTEIN 6.6 G/DL (5.7-8.2); TRIGLYCERIDES LEVEL 122 MG/DL (<150); WHITE BLOOD COUNT 5.6 10^3/uL (4.0-10.0)
[2023-09-21 14:46] LABS: TOTAL 25(OH) VITAMIN D 57.9 NG/ML (20.0-100.0)
[2023-09-21 14:47] LABS: THYROID STIMULATING HORMONE 5.026 uIU/ML (0.55-4.78)
[2023-09-21 14:48] LABS: FREE T4 0.97 NG/DL (0.89-1.76)
[2023-09-21 14:49] LABS: VITAMIN B12 LEVEL 1299 PG/ML (211-911)
[2023-09-21 15:13] LABS: CREATININE, URINE 41.2 MG/DL; MALB URINE SIEMENS < 3.0 MG/L; MAU/CREAT RATIO 7.2 MCG/MG (0.0-30.0)
== END ==
LOC: M PLALAB 06:56
PROVIDERS: ATTEND Internal Medicine Hematology
DX: Z00.00 Encounter for general adult medical examination without abnormal findings (principal); E55.9 Vitamin D deficiency, unspecified; E78.2 Mixed hyperlipidemia; I10 Essential (primary) hypertension; M85.80 Other specified disorders of bone density and structure, unspecified site; Z83.3 Family history of diabetes mellitus; Z79.899 Other long term (current) drug therapy

== ENCOUNTER → 2023-10-19 | Outpatient (CLI) | payer MEDICARE, OTHER | LOC: M WHC 10:47 | PROVIDERS: ATTEND Internal Medicine Hematology | DX: Z12.31 Encounter for screening mammogram for malignant neoplasm of breast (principal); Z13.820 Encounter for screening for osteoporosis; M85.89 Other specified disorders of bone density and structure, multiple sites; R92.323 Mammographic fibroglandular density, bilateral breasts ==

== ENCOUNTER → 2024-05-29 | Outpatient (CLI) | payer MEDICARE, OTHER ==
[2024-05-29 11:11] LABS: BASO # 0.1 10^3/uL (0.0-0.2); EOS # 0.2 10^3/uL (0.0-0.5); EOS % 3.3 % (0.0-3.0); HEMOGLOBIN 14.7 g/dl (12.0-15.5); LYMPH # 1.8 10^3/uL (1.5-5.0); LYMPH % 29.4 % (24.0-44.0); MEAN CORPUSCULAR HEMOGLOBIN 32.1 pg (27.0-33.0); MEAN CORPUSCULAR HGB CONC 32.7 g/dl (32.0-36.5); MEAN CORPUSCULAR VOLUME 98.3 fl (80.0-96.0); MONO # 0.5 10^3/uL (0.0-0.8); MONO % 7.7 % (2.0-8.0); NEUTROPHILS # 3.5 10^3/uL (1.5-8.5); NEUTROPHILS % 58.4 % (36.0-66.0); PLATELET COUNT, AUTOMATED 279 10^3/uL (150-450); RED BLOOD COUNT 4.58 10^6/uL (4.00-5.40)
[2024-05-29 11:12] LABS: FREE T4 0.97 NG/DL (0.89-1.76); THYROID STIMULATING HORMONE 4.981 uIU/ML (0.55-4.78)
[2024-05-29 11:14] LABS: ALKALINE PHOSPHATASE 92 U/L (35-104); ALT/SGPT 34 U/L (7.0-40); AST/SGOT 29 U/L (<34); BILIRUBIN,TOTAL 1.2 MG/DL (0.3-1.2); BLOOD UREA NITROGEN 22 MG/DL (9-23); CALCIUM LEVEL 9.1 MG/DL (8.3-10.6); CARBON DIOXIDE LEVEL 28 MMOL/L (20-31); CHLORIDE LEVEL 106 MMOL/L (98-107); CREATININE FOR GFR 0.77 MG/DL (0.55-1.30); GLOMERULAR FILTRATION RATE > 60.0 (>39); GLUCOSE, FASTING 95 MG/DL (74-106); POTASSIUM SERUM 4.5 MMOL/L (3.5-5.1); SODIUM LEVEL 141 MMOL/L (136-145); TOTAL 25(OH) VITAMIN D 59.5 NG/ML (20.0-100.0); TOTAL PROTEIN 6.8 G/DL (5.7-8.2)
== END ==
LOC: M PLALAB 07:01
PROVIDERS: ATTEND Internal Medicine Hematology
DX: M85.80 Other specified disorders of bone density and structure, unspecified site (principal); Z79.899 Other long term (current) drug therapy

== ENCOUNTER → 2024-12-05 | Outpatient (CLI) | payer MEDICARE, OTHER ==
[2024-12-05 10:48] LABS: APPEARANCE, URINE CLEAR (CLEAR); BACTERIA, URINE AUTO NEGATIVE (NEGATIVE); BILIRUBIN, URINE AUTO NEGATIVE (NEGATIVE); BLOOD, URINE BLOOD NEGATIVE (NEGATIVE); GLUCOSE, URINE (UA) AUTO NEGATIVE (NEGATIVE); KETONE, URINE AUTO NEGATIVE (NEGATIVE); LEUKOCYTE ESTERASE, URINE AUTO NEGATIVE (NEGATIVE); NITRITE, URINE AUTO NEGATIVE (NEGATIVE); PROTEIN, URINE AUTO NEGATIVE (NEGATIVE); RBC, URINE AUTO 0 /HPF (0-3); SPECIFIC GRAVITY URINE AUTO 1.008 (1.002-1.035); SQUAMOUS EPITHELIAL CELL UR AU 0 /HPF (0-6); UROBILINOGEN, URINE AUTO 0.2 mg/dL (0.0-2.0); WBC, URINE AUTO 0 /HPF (0-3)
[2024-12-05 10:55] LABS: BASO # 0.1 10^3/uL (0.0-0.2); BASO % 1.0 % (0.0-1.0); EOS # 0.3 10^3/uL (0.0-0.5); EOS % 4.6 % (0.0-3.0); LYMPH # 1.8 10^3/uL (1.5-5.0); LYMPH % 27.7 % (24.0-44.0); MONO # 0.6 10^3/uL (0.0-0.8); MONO % 10.1 % (2.0-8.0); NEUTROPHILS # 3.5 10^3/uL (1.5-8.5); NEUTROPHILS % 56.1 % (36.0-66.0); PLATELET COUNT, AUTOMATED 260 10^3/uL (150-450)
[2024-12-05 11:24] LABS: ALT/SGPT 37.0 U/L (7.0-40); AST/SGOT 45.0 U/L (<34); CALCIUM LEVEL 8.9 MG/DL (8.3-10.6); CARBON DIOXIDE LEVEL 23.0 MMOL/L (20-31); CHLORIDE LEVEL 103.0 MMOL/L (98-107); CHOLESTEROL LEVEL 164.0 MG/DL (<200); CHOLESTEROL RISK RATIO 2.61 (<5); CREATININE FOR GFR 0.74 MG/DL (0.55-1.30); GLOMERULAR FILTRATION RATE 85.4 (>39); IRON (FE) 172.0 UG/DL (50-170); LDL CHOLESTEROL 72.2 MG/DL (<100); NON-HDL-C 101.4 MG/DL; PERCENT SATURATION 70.2 % (13.2-45.0); POTASSIUM SERUM 5.2 MMOL/L (3.5-5.1); SODIUM LEVEL 141.0 MMOL/L (136-145); TRIGLYCERIDES LEVEL 146.0 MG/DL (<150)
[2024-12-05 11:26] LABS: VITAMIN B12 LEVEL 543.0 PG/ML (211-911)
[2024-12-05 12:32] LABS: FREE T4 1.05 NG/DL (0.89-1.76)
== END ==
LOC: M PLALAB 06:55
PROVIDERS: ATTEND Student in an Organized Health Care Education/Training Program
DX: M17.12 Unilateral primary osteoarthritis, left knee (principal); E78.2 Mixed hyperlipidemia; D50.9 Iron deficiency anemia, unspecified

== ENCOUNTER → 2024-12-18 | Outpatient (CLI) | payer MEDICARE, OTHER ==
[2024-12-18 09:54] LABS: PLATELET COUNT, AUTOMATED 305 10^3/uL (150-450)
[2024-12-18 10:00] LABS: ERYTHROCYTE SEDIMENTATION RATE 11 mm/hr (0-30)
[2024-12-18 10:09] LABS: INR 0.89
[2024-12-18 10:15] LABS: ALT/SGPT 31.0 U/L (7.0-40); AST/SGOT 33.0 U/L (<34); CALCIUM LEVEL 9.5 MG/DL (8.3-10.6); CARBON DIOXIDE LEVEL 29.0 MMOL/L (20-31); CHLORIDE LEVEL 104.0 MMOL/L (98-107); CREATININE FOR GFR 0.77 MG/DL (0.55-1.30); GLOMERULAR FILTRATION RATE 81.4 (>39); POTASSIUM SERUM 4.7 MMOL/L (3.5-5.1); SODIUM LEVEL 140.0 MMOL/L (136-145)
== END ==
LOC: M EKG 08:13
PROVIDERS: ATTEND Orthopaedic Surgery
DX: Z01.818 Encounter for other preprocedural examination (principal); M17.12 Unilateral primary osteoarthritis, left knee; R94.31 Abnormal electrocardiogram [ECG] [EKG]

== ENCOUNTER → 2024-12-27 | Outpatient (CLI) | payer MEDICARE, OTHER | LOC: M RAD 12:38 | PROVIDERS: ATTEND Orthopaedic Surgery | DX: Z01.818 Encounter for other preprocedural examination (principal); M17.12 Unilateral primary osteoarthritis, left knee ==

== ENCOUNTER → 2025-03-24 | Outpatient (CLI) | payer MEDICARE, OTHER | LOC: M RAD 14:08 | PROVIDERS: ATTEND Orthopaedic Surgery | DX: R22.42 Localized swelling, mass and lump, left lower limb (principal); M71.22 Synovial cyst of popliteal space [Baker], left knee ==